=== PATIENT | female | born 1955 | race Caucasian/White ===

== ENCOUNTER 2018-05-14 09:00 | Outpatient (CLI) | payer BC ==
[~2018-05-14] VITALS: Ht 175.3 cm; Wt 123.4 kg
[2018-05-14] MEDS ORDERED: CATHETER FLUSH 10 ML SYR IV PRN (09:30)
[2018-05-14] MEDS ORDERED: NS IV 500 ML 500 ML ONE (10:32)
[2018-05-14 10:50] VITALS: BP 129/67
[2018-05-14 11:05] VITALS: BP 109/56
[2018-05-14 12:35] VITALS: BP 105/58
[2018-05-14 13:00] VITALS: BP 129/67
[2018-05-14 13:05] VITALS: BP 129/67
== END 2018-05-14 13:05 | disposition home or self-care (01) ==
LOC: SDC 09:00
PROVIDERS: ATTEND Internal Medicine Hematology & Oncology
DX: D69.59 Other secondary thrombocytopenia (principal)
CPT/HCPCS: 36430; 86850; 86900; 86901

== ENCOUNTER → 2018-05-21 | Outpatient (CLI) | payer BC ==
[2018-05-21] VITALS (8 sets, daily range): BP systolic 105–144; BP diastolic 62–89
[~2018-05-21] VITALS: Ht 175.3 cm; Wt 12.2 kg
[~2018-05-21] MED LIST: ACETAMINOPHEN 325 MG TABLET PO ONE; HEParin (CENTRAL IV FLUSH) 500 UNIT/5 ML SYR ONE; HYDROCORTISONE 100 MG/2 ML (Solu-CORTEF) VIAL IV ONE; NS IV 500 ML 500 ML IV SCH; TBO-FILGRASTIM 480 MCG/0.8 ML (GRANIX) SQ SCH; diphenhydrAMINE 25 MG TAB (BENADRYL) PO ONE
== END ==
LOC: SDC 14:08
PROVIDERS: ATTEND Internal Medicine Hematology & Oncology
DX: C48.8 Malignant neoplasm of overlapping sites of retroperitoneum and peritoneum (principal)
CPT/HCPCS: 36430; 86850; 86900; 86901; 86920

== ENCOUNTER 2018-05-23 14:14 | Outpatient (RCR) | payer BC ==
[~2018-05-23] VITALS: Ht 175.3 cm; Wt 12.2 kg
[2018-05-23] MEDS: TBO-FILGRASTIM 480 MCG/0.8 ML (GRANIX) SQ SCH (14:59)
[2018-05-23 15:07] VITALS: BP 130/75
[2018-05-24] MEDS: TBO-FILGRASTIM 480 MCG/0.8 ML (GRANIX) SQ SCH (13:51)
[2018-05-24 13:52] VITALS: BP 128/82
== END 2018-08-21 | disposition home or self-care (01) ==
LOC: 4TH 14:14 → SDC 14:14 → 4TH 14:18 → SDC 14:18 → 4TH 05-24 04:58
PROVIDERS: ATTEND Internal Medicine Hematology & Oncology
DX: C48.8 Malignant neoplasm of overlapping sites of retroperitoneum and peritoneum (principal)

== ENCOUNTER → 2018-06-17 | Outpatient (CLI) | payer BC ==
[~2018-06-17] MED LIST changes: -ACETAMINOPHEN 325 MG TABLET PO ONE; +BARIUM SUSPENSION 2.1% (VANILLA SILQ) 450 ML PO ONE; +CATHETER FLUSH 10 ML SYR IV PRN; -HEParin (CENTRAL IV FLUSH) 500 UNIT/5 ML SYR ONE; +HOLD METFORMIN - RECEIVED CONTRAST 20 ML VIAL IV SCH; -HYDROCORTISONE 100 MG/2 ML (Solu-CORTEF) VIAL IV ONE; +IOHEXOL 350 MG/ML 100 ML (OMNIPAQUE 350) VIAL IV ONE; +NS 50 ML (IVPB) BAG IV ONE; -NS IV 500 ML 500 ML IV SCH; -TBO-FILGRASTIM 480 MCG/0.8 ML (GRANIX) SQ SCH; -diphenhydrAMINE 25 MG TAB (BENADRYL) PO ONE
--- NOTE | 2018-06-17 10:32 | Diagnostic Imaging Report ---
PROCEDURE: CT abdomen and pelvis with contrast. TECHNIQUE: Multiple contiguous axial images were obtained through the abdomen and pelvis after administration of intravenous contrast. Auto Exposure Controls were utilized during the CT exam to meet ALARA standards for radiation dose reduction. INDICATION: Malignant neoplasm. Study is performed for followup. COMPARISON: Correlation is made with prior CT from [facility] on 04/06/2018. FINDINGS: The lung bases are clear. No discrete liver mass is identified. The gallbladder is surgically absent. No biliary duct dilatation is seen. The pancreas and spleen are unremarkable. Right adrenal mass seen on prior exam has significantly decreased in size and is now barely visible. No left adrenal mass is identified. The kidneys are unremarkable. Aorta is nonaneurysmal. Previous study did show prominent lymph node in the central retroperitoneum anterior to the IVC just proximal to the aortic bifurcation. This lymph node and is now barely visible and only a few millimeters in size. No enlarged central retroperitoneal lymph nodes or enlarged mesenteric nodes are identified on today's study. In addition, prior study did show multiple enlarged lymph nodes along the iliac chains bilaterally. These too have nearly completely resolved. There are small obturator nodes present, on the right measuring 20 mm x 13 mm and on the left measuring 23 mm x 11 mm. This compares with 37 mm x 27 mm and 39 mm x 26 mm respectively on prior exam. Bulky inguinal lymphadenopathy was also present on prior exam. This has also completely resolved. Small and large bowel loops are normal in caliber. There is no ascites. Bladder is decompressed. IMPRESSION: Significant improved appearance to the abdomen and pelvis since prior CT from 04/06/2018. Central retroperitoneal as well as bilateral iliac and inguinal lymphadenopathy has markedly improved. No new abnormality is seen. Right adrenal mass has also significantly decreased in size. Dictated by: Dictated on workstation # [id number]
== END ==
LOC: RAD FS 08:19
PROVIDERS: ATTEND Internal Medicine Hematology & Oncology
DX: C48.8 Malignant neoplasm of overlapping sites of retroperitoneum and peritoneum (principal); R59.0 Localized enlarged lymph nodes; E27.8 Other specified disorders of adrenal gland; Z90.49 Acquired absence of other specified parts of digestive tract
CPT/HCPCS: 74177

== ENCOUNTER → 2018-06-17 | Outpatient (CLI) | payer BC ==
[2018-06-17 09:19] LABS: HEMOGLOBIN 7.6 G/DL (11.5-16.0); MEAN CORPUSCULAR HEMOGLOBIN 31 PG (25-34); WHITE BLOOD COUNT 4.5 10^3/uL (4.3-11.0)
[2018-06-17 09:20] LABS: BASOPHILS % (AUTO) 0 % (0-10); EOSINOPHILS % (AUTO) 1 % (0-10); HEMATOCRIT 26 % (35-52); LYMPHOCYTES % (AUTO) 32 % (12-44); MEAN CORPUSCULAR HGB CONC 29 G/DL (32-36); MEAN CORPUSCULAR VOLUME 105 FL (80-99); MEAN PLATELET VOLUME 10.3 FL (7.4-10.4); MONOCYTES % (AUTO) 29 % (0-12); NEUTROPHILS % (AUTO) 24 % (42-75); PLATELET COUNT 208 10^3/uL (130-400); RED CELL DISTRIBUTION WIDTH 22.5 % (10.0-14.5)
[2018-06-17 09:21] LABS: EOSINOPHILS # (AUTO) 0.1 10^3/uL (0.0-0.3); LYMPHOCYTES # (AUTO) 1.4 X 10^3 (1.0-4.0); MONOCYTES # (AUTO) 1.3 X 10^3 (0.0-1.0); NEUTROPHILS # (AUTO) 1.1 X 10^3 (1.8-7.8)
[2018-06-17 09:35] LABS: POTASSIUM 3.6 MMOL/L (3.6-5.0)
[2018-06-17 09:36] LABS: BILIRUBIN,TOTAL 0.4 MG/DL (0.1-1.0); CALCIUM 8.9 MG/DL (8.5-10.1); CREATININE SERUM 1.2 MG/DL (0.60-1.30); TOTAL PROTEIN 7.3 GM/DL (6.4-8.2)
[2018-06-17 09:37] LABS: ALBUMIN 3.8 GM/DL (3.2-4.5)
[2018-06-17 09:56] LABS: BAND NEUTROPHILS 8 %; BASOPHILS % (MANUAL) 0 %; EOSINOPHILS % (MANUAL) 0 %; LYMPHOCYTES % (MANUAL) 36 %; METAMYELOCYTES % 10 %; MONOCYTES % (MANUAL) 19 %; MYELOCYTES % 5 %; NEUTROPHILS % (MANUAL) 20 %
[2018-06-17 09:57] LABS: ANISOCYTOSIS MODERATE; ATYPICAL LYMPHOCYTES 2 %; NUCLEATED RED BLOOD CELLS 4; POLYCHROMASIA SLIGHT
== END ==
LOC: LAB FS 08:25
PROVIDERS: ATTEND Internal Medicine Hematology & Oncology
DX: C48.8 Malignant neoplasm of overlapping sites of retroperitoneum and peritoneum (principal)
CPT/HCPCS: 36415; 80053; 85007; 85027; 86304

== ENCOUNTER → 2018-06-24 | Outpatient (CLI) | payer BC ==
[2018-06-24 08:09] LABS: HEMATOCRIT 31 % (35-52); HEMOGLOBIN 9.1 G/DL (11.5-16.0); MEAN CORPUSCULAR HEMOGLOBIN 31 PG (25-34); MEAN CORPUSCULAR HGB CONC 30 G/DL (32-36); MEAN CORPUSCULAR VOLUME 104 FL (80-99); RED CELL DISTRIBUTION WIDTH 21.1 % (10.0-14.5)
[2018-06-24 08:10] LABS: BASOPHILS % (AUTO) 1 % (0-10); EOSINOPHILS % (AUTO) 1 % (0-10); LYMPHOCYTES # (AUTO) 1.3 X 10^3 (1.0-4.0); LYMPHOCYTES % (AUTO) 31 % (12-44); MEAN PLATELET VOLUME 10.1 FL (7.4-10.4); MONOCYTES # (AUTO) 0.7 X 10^3 (0.0-1.0); MONOCYTES % (AUTO) 16 % (0-12); NEUTROPHILS % (AUTO) 50 % (42-75); PLATELET COUNT 258 10^3/uL (130-400)
[2018-06-24 08:11] LABS: SMEAR SCAN COMMENT OK
== END ==
LOC: LAB FS 07:04
PROVIDERS: ATTEND Internal Medicine Hematology & Oncology
DX: C48.8 Malignant neoplasm of overlapping sites of retroperitoneum and peritoneum (principal)
CPT/HCPCS: 36415; 85025

== ENCOUNTER → 2018-07-01 | Outpatient (CLI) | payer BC ==
[2018-07-01 07:37] LABS: HEMATOCRIT 27 % (35-52); MEAN CORPUSCULAR HEMOGLOBIN 31 PG (25-34); MEAN CORPUSCULAR HGB CONC 30 G/DL (32-36); MEAN CORPUSCULAR VOLUME 104 FL (80-99); WHITE BLOOD COUNT 7.2 10^3/uL (4.3-11.0)
[2018-07-01 07:38] LABS: BASOPHILS % (AUTO) 1 % (0-10); EOSINOPHILS % (AUTO) 0 % (0-10); LYMPHOCYTES % (AUTO) 17 % (12-44); MEAN PLATELET VOLUME 9.7 FL (7.4-10.4); MONOCYTES % (AUTO) 20 % (0-12); PLATELET COUNT 160 10^3/uL (130-400); RED CELL DISTRIBUTION WIDTH 18.8 % (10.0-14.5)
[2018-07-01 07:39] LABS: LYMPHOCYTES # (AUTO) 1.3 X 10^3 (1.0-4.0); NEUTROPHILS # (AUTO) 4.5 X 10^3 (1.8-7.8); NEUTROPHILS % (AUTO) 62 % (42-75)
[2018-07-01 07:40] LABS: BASOPHILS # (AUTO) 0.1 10^3/uL (0.0-0.1); MONOCYTES # (AUTO) 1.4 X 10^3 (0.0-1.0)
== END ==
LOC: LAB FS 07:08
PROVIDERS: ATTEND Internal Medicine Hematology & Oncology
DX: C48.8 Malignant neoplasm of overlapping sites of retroperitoneum and peritoneum (principal)
CPT/HCPCS: 36415; 85025

== ENCOUNTER 2018-07-08 07:18 | Outpatient (RCR) | payer BC ==
[2018-07-08 07:49] LABS: HEMATOCRIT 29 % (35-52); HEMOGLOBIN 8.7 G/DL (11.5-16.0); MEAN CORPUSCULAR HEMOGLOBIN 32 PG (25-34); MEAN CORPUSCULAR HGB CONC 30 G/DL (32-36); MEAN CORPUSCULAR VOLUME 106 FL (80-99); MEAN PLATELET VOLUME 10.8 FL (7.4-10.4); PLATELET COUNT 105 10^3/uL (130-400); RED CELL DISTRIBUTION WIDTH 18.6 % (10.0-14.5); WHITE BLOOD COUNT 26.1 10^3/uL (4.3-11.0)
[2018-07-08 07:50] LABS: BASOPHILS # (AUTO) 0.1 10^3/uL (0.0-0.1); BASOPHILS % (AUTO) 1 % (0-10); EOSINOPHILS % (AUTO) 0 % (0-10); LYMPHOCYTES # (AUTO) 1.9 X 10^3 (1.0-4.0); LYMPHOCYTES % (AUTO) 7 % (12-44); MONOCYTES # (AUTO) 1.3 X 10^3 (0.0-1.0); MONOCYTES % (AUTO) 5 % (0-12); NEUTROPHILS % (AUTO) 81 % (42-75)
[2018-07-08 08:12] LABS: ATYPICAL LYMPHOCYTES 1 %; BAND NEUTROPHILS 7 %; BASOPHILS % (MANUAL) 0 %; EOSINOPHILS % (MANUAL) 0 %; LYMPHOCYTES % (MANUAL) 6 %; METAMYELOCYTES % 1 %; MONOCYTES % (MANUAL) 4 %; MYELOCYTES % 3 %; NEUTROPHILS % (MANUAL) 78 %
[2018-07-08 08:13] LABS: POLYCHROMASIA SLIGHT
[2018-07-15 07:50] LABS: HEMOGLOBIN 9.8 G/DL (11.5-16.0); MEAN CORPUSCULAR HEMOGLOBIN 33 PG (25-34); WHITE BLOOD COUNT 11.1 10^3/uL (4.3-11.0)
[2018-07-15 07:51] LABS: BASOPHILS % (AUTO) 1 % (0-10); EOSINOPHILS % (AUTO) 1 % (0-10); HEMATOCRIT 33 % (35-52); LYMPHOCYTES % (AUTO) 13 % (12-44); MEAN CORPUSCULAR HGB CONC 30 G/DL (32-36); MEAN CORPUSCULAR VOLUME 112 FL (80-99); MEAN PLATELET VOLUME 11.1 FL (7.4-10.4); MONOCYTES % (AUTO) 8 % (0-12); NEUTROPHILS % (AUTO) 77 % (42-75); PLATELET COUNT 150 10^3/uL (130-400); RED CELL DISTRIBUTION WIDTH 22.4 % (10.0-14.5)
[2018-07-15 07:52] LABS: BASOPHILS # (AUTO) 0.1 10^3/uL (0.0-0.1); EOSINOPHILS # (AUTO) 0.1 10^3/uL (0.0-0.3); LYMPHOCYTES # (AUTO) 1.5 X 10^3 (1.0-4.0); MONOCYTES # (AUTO) 0.9 X 10^3 (0.0-1.0); NEUTROPHILS # (AUTO) 8.6 X 10^3 (1.8-7.8)
[2018-07-22 08:07] LABS: BASOPHILS % (AUTO) 1 % (0-10); EOSINOPHILS % (AUTO) 2 % (0-10); HEMATOCRIT 35 % (35-52); HEMOGLOBIN 10.6 G/DL (11.5-16.0); LYMPHOCYTES % (AUTO) 20 % (12-44); MEAN CORPUSCULAR HEMOGLOBIN 32 PG (25-34); MEAN CORPUSCULAR HGB CONC 30 G/DL (32-36); MEAN CORPUSCULAR VOLUME 107 FL (80-99); MEAN PLATELET VOLUME 10.9 FL (7.4-10.4); MONOCYTES % (AUTO) 10 % (0-12); NEUTROPHILS % (AUTO) 67 % (42-75); PLATELET COUNT 203 10^3/uL (130-400); RED CELL DISTRIBUTION WIDTH 19.7 % (10.0-14.5); WHITE BLOOD COUNT 8.1 10^3/uL (4.3-11.0)
[2018-07-22 08:08] LABS: BASOPHILS # (AUTO) 0.1 10^3/uL (0.0-0.1); EOSINOPHILS # (AUTO) 0.2 10^3/uL (0.0-0.3); LYMPHOCYTES # (AUTO) 1.6 X 10^3 (1.0-4.0); MONOCYTES # (AUTO) 0.8 X 10^3 (0.0-1.0); NEUTROPHILS # (AUTO) 5.5 X 10^3 (1.8-7.8)
[2018-07-22 09:29] LABS: ALBUMIN 3.6 GM/DL (3.2-4.5); BILIRUBIN,TOTAL 0.5 MG/DL (0.1-1.0); CALCIUM 9.4 MG/DL (8.5-10.1); CREATININE SERUM 1.01 MG/DL (0.60-1.30); POTASSIUM 3.9 MMOL/L (3.6-5.0); TOTAL PROTEIN 7.2 GM/DL (6.4-8.2)
[2018-07-29 07:42] LABS: MEAN CORPUSCULAR HEMOGLOBIN 32 PG (25-34); WHITE BLOOD COUNT 5.4 10^3/uL (4.3-11.0)
[2018-07-29 07:43] LABS: BASOPHILS % (AUTO) 1 % (0-10); EOSINOPHILS % (AUTO) 1 % (0-10); HEMATOCRIT 33 % (35-52); LYMPHOCYTES % (AUTO) 20 % (12-44); MEAN CORPUSCULAR HGB CONC 30 G/DL (32-36); MEAN CORPUSCULAR VOLUME 106 FL (80-99); MEAN PLATELET VOLUME 10.7 FL (7.4-10.4); MONOCYTES % (AUTO) 9 % (0-12); NEUTROPHILS % (AUTO) 69 % (42-75); PLATELET COUNT 104 10^3/uL (130-400); RED CELL DISTRIBUTION WIDTH 17.1 % (10.0-14.5)
[2018-07-29 07:44] LABS: LYMPHOCYTES # (AUTO) 1.1 X 10^3 (1.0-4.0); MONOCYTES # (AUTO) 0.5 X 10^3 (0.0-1.0); NEUTROPHILS # (AUTO) 3.7 X 10^3 (1.8-7.8)
[2018-08-05 08:21] LABS: HEMATOCRIT 30 % (35-52); HEMOGLOBIN 9.3 G/DL (11.5-16.0); MEAN CORPUSCULAR HEMOGLOBIN 32 PG (25-34); MEAN CORPUSCULAR VOLUME 106 FL (80-99); WHITE BLOOD COUNT 11.6 10^3/uL (4.3-11.0)
[2018-08-05 08:22] LABS: BASOPHILS % (AUTO) 0 % (0-10); EOSINOPHILS % (AUTO) 0 % (0-10); LYMPHOCYTES # (AUTO) 1.5 X 10^3 (1.0-4.0); LYMPHOCYTES % (AUTO) 13 % (12-44); MEAN CORPUSCULAR HGB CONC 31 G/DL (32-36); MEAN PLATELET VOLUME 11.4 FL (7.4-10.4); MONOCYTES # (AUTO) 0.6 X 10^3 (0.0-1.0); MONOCYTES % (AUTO) 5 % (0-12); NEUTROPHILS # (AUTO) 9.5 X 10^3 (1.8-7.8); NEUTROPHILS % (AUTO) 82 % (42-75); PLATELET COUNT 53 10^3/uL (130-400); RED CELL DISTRIBUTION WIDTH 16.7 % (10.0-14.5)
[2018-08-19 07:41] LABS: HEMATOCRIT 38 % (35-52); HEMOGLOBIN 11.6 G/DL (11.5-16.0); MEAN CORPUSCULAR HEMOGLOBIN 32 PG (25-34); MEAN CORPUSCULAR HGB CONC 30 G/DL (32-36); MEAN CORPUSCULAR VOLUME 106 FL (80-99); PLATELET COUNT 193 10^3/uL (130-400); RED CELL DISTRIBUTION WIDTH 16.8 % (10.0-14.5); WHITE BLOOD COUNT 6.9 10^3/uL (4.3-11.0)
[2018-08-19 07:42] LABS: BASOPHILS # (AUTO) 0.1 10^3/uL (0.0-0.1); BASOPHILS % (AUTO) 1 % (0-10); EOSINOPHILS # (AUTO) 0.1 10^3/uL (0.0-0.3); EOSINOPHILS % (AUTO) 2 % (0-10); LYMPHOCYTES # (AUTO) 1.4 X 10^3 (1.0-4.0); LYMPHOCYTES % (AUTO) 21 % (12-44); MEAN PLATELET VOLUME 9.9 FL (7.4-10.4); MONOCYTES # (AUTO) 0.7 X 10^3 (0.0-1.0); MONOCYTES % (AUTO) 10 % (0-12); NEUTROPHILS # (AUTO) 4.6 X 10^3 (1.8-7.8); NEUTROPHILS % (AUTO) 67 % (42-75)
== END 2018-10-06 | disposition home or self-care (01) ==
LOC: LAB FS 07:18
PROVIDERS: ATTEND Internal Medicine Hematology & Oncology
DX: C48.8 Malignant neoplasm of overlapping sites of retroperitoneum and peritoneum (principal)
CPT/HCPCS: 36415; 80053; 82728; 83540; 85007; 85025; 85027; 86304

== ENCOUNTER → 2018-08-12 | Outpatient (CLI) | payer BC ==
[2018-08-12 08:59] LABS: HEMATOCRIT 33 % (35-52); HEMOGLOBIN 10.2 G/DL (11.5-16.0); MEAN CORPUSCULAR HEMOGLOBIN 32 PG (25-34); MEAN CORPUSCULAR HGB CONC 31 G/DL (32-36); MEAN CORPUSCULAR VOLUME 106 FL (80-99); PLATELET COUNT 196 10^3/uL (130-400); RED CELL DISTRIBUTION WIDTH 17.6 % (10.0-14.5); WHITE BLOOD COUNT 6.2 10^3/uL (4.3-11.0)
[2018-08-12 09:00] LABS: BASOPHILS % (AUTO) 1 % (0-10); EOSINOPHILS # (AUTO) 0.1 10^3/uL (0.0-0.3); EOSINOPHILS % (AUTO) 2 % (0-10); LYMPHOCYTES # (AUTO) 1.4 X 10^3 (1.0-4.0); LYMPHOCYTES % (AUTO) 22 % (12-44); MEAN PLATELET VOLUME 11.1 FL (7.4-10.4); MONOCYTES # (AUTO) 0.9 X 10^3 (0.0-1.0); MONOCYTES % (AUTO) 14 % (0-12); NEUTROPHILS # (AUTO) 3.8 X 10^3 (1.8-7.8); NEUTROPHILS % (AUTO) 61 % (42-75)
[2018-08-12 10:20] LABS: CREATININE SERUM 1.04 MG/DL (0.60-1.30); POTASSIUM 3.7 MMOL/L (3.6-5.0)
[2018-08-12 10:21] LABS: ALBUMIN 3.6 GM/DL (3.2-4.5); BILIRUBIN,TOTAL 0.4 MG/DL (0.1-1.0); TOTAL PROTEIN 7.2 GM/DL (6.4-8.2)
== END ==
LOC: LAB FS 07:11
PROVIDERS: ATTEND Internal Medicine Hematology & Oncology
DX: C48.8 Malignant neoplasm of overlapping sites of retroperitoneum and peritoneum (principal); D63.1 Anemia in chronic kidney disease; N18.9 Chronic kidney disease, unspecified; D64.81 Anemia due to antineoplastic chemotherapy; T45.1X5A Adverse effect of antineoplastic and immunosuppressive drugs, initial encounter; D69.59 Other secondary thrombocytopenia
CPT/HCPCS: 36415; 80053; 85025; 86304

== ENCOUNTER 2018-08-26 07:57 | Outpatient (RCR) | payer BC ==
[2018-08-26 08:40] LABS: HEMATOCRIT 34 % (35-52); HEMOGLOBIN 10.6 G/DL (11.5-16.0); MEAN CORPUSCULAR HEMOGLOBIN 33 PG (25-34); MEAN CORPUSCULAR HGB CONC 32 G/DL (32-36); MEAN CORPUSCULAR VOLUME 104 FL (80-99); PLATELET COUNT 108 10^3/uL (130-400); WHITE BLOOD COUNT 6.8 10^3/uL (4.3-11.0)
[2018-08-26 08:41] LABS: BASOPHILS % (AUTO) 0 % (0-10); EOSINOPHILS % (AUTO) 0 % (0-10); LYMPHOCYTES # (AUTO) 1.4 X 10^3 (1.0-4.0); LYMPHOCYTES % (AUTO) 21 % (12-44); MONOCYTES # (AUTO) 0.8 X 10^3 (0.0-1.0); MONOCYTES % (AUTO) 12 % (0-12); NEUTROPHILS # (AUTO) 4.5 X 10^3 (1.8-7.8); NEUTROPHILS % (AUTO) 66 % (42-75)
[2018-09-02 12:10] LABS: HEMATOCRIT 34 % (35-52); HEMOGLOBIN 10.5 G/DL (11.5-16.0); MEAN CORPUSCULAR HEMOGLOBIN 32 PG (25-34); MEAN CORPUSCULAR HGB CONC 31 G/DL (32-36); MEAN CORPUSCULAR VOLUME 103 FL (80-99); MEAN PLATELET VOLUME 10.8 FL (7.4-10.4); PLATELET COUNT 72 10^3/uL (130-400); RED CELL DISTRIBUTION WIDTH 15.4 % (10.0-14.5); WHITE BLOOD COUNT 18.4 10^3/uL (4.3-11.0)
[2018-09-02 12:11] LABS: BASOPHILS # (AUTO) 0.1 10^3/uL (0.0-0.1); BASOPHILS % (AUTO) 0 % (0-10); EOSINOPHILS % (AUTO) 0 % (0-10); LYMPHOCYTES % (AUTO) 11 % (12-44); MONOCYTES % (AUTO) 5 % (0-12); NEUTROPHILS # (AUTO) 14.9 X 10^3 (1.8-7.8); NEUTROPHILS % (AUTO) 81 % (42-75)
[2018-09-02 12:12] LABS: ANISOCYTOSIS SLIGHT; BAND NEUTROPHILS 5 %; BASOPHILS % (MANUAL) 0 %; EOSINOPHILS % (MANUAL) 0 %; LYMPHOCYTES % (MANUAL) 15 %; METAMYELOCYTES % 0 %; MONOCYTES % (MANUAL) 6 %; MYELOCYTES % 1 %; NEUTROPHILS % (MANUAL) 73 %
[2018-09-09 08:01] LABS: HEMATOCRIT 37 % (35-52); LYMPHOCYTES % (AUTO) 7 % (12-44); MEAN CORPUSCULAR HEMOGLOBIN 33 PG (25-34); MEAN CORPUSCULAR HGB CONC 30 G/DL (32-36); MEAN CORPUSCULAR VOLUME 108 FL (80-99); MEAN PLATELET VOLUME 10.6 FL (7.4-10.4); MONOCYTES % (AUTO) 10 % (0-12); PLATELET COUNT 191 10^3/uL (130-400); RED CELL DISTRIBUTION WIDTH 18.3 % (10.0-14.5); WHITE BLOOD COUNT 9.1 10^3/uL (4.3-11.0)
[2018-09-09 08:02] LABS: BASOPHILS % (AUTO) 0 % (0-10); EOSINOPHILS # (AUTO) 0.3 10^3/uL (0.0-0.3); EOSINOPHILS % (AUTO) 3 % (0-10); LYMPHOCYTES # (AUTO) 0.6 X 10^3 (1.0-4.0); NEUTROPHILS # (AUTO) 7.3 X 10^3 (1.8-7.8); NEUTROPHILS % (AUTO) 80 % (42-75)
[2018-09-09 08:23] LABS: BILIRUBIN,TOTAL 0.6 MG/DL (0.1-1.0); CALCIUM 8.6 MG/DL (8.5-10.1); CREATININE SERUM 1.03 MG/DL (0.60-1.30); POTASSIUM 3.6 MMOL/L (3.6-5.0)
[2018-09-09 08:24] LABS: ALBUMIN 3.3 GM/DL (3.2-4.5)
[2018-09-16 07:32] LABS: BASOPHILS % (AUTO) 1 % (0-10); EOSINOPHILS % (AUTO) 2 % (0-10); HEMATOCRIT 39 % (35-52); HEMOGLOBIN 11.7 G/DL (11.5-16.0); LYMPHOCYTES # (AUTO) 1.8 X 10^3 (1.0-4.0); LYMPHOCYTES % (AUTO) 22 % (12-44); MEAN CORPUSCULAR HEMOGLOBIN 32 PG (25-34); MEAN CORPUSCULAR HGB CONC 30 G/DL (32-36); MEAN CORPUSCULAR VOLUME 107 FL (80-99); MEAN PLATELET VOLUME 10.4 FL (7.4-10.4); MONOCYTES % (AUTO) 12 % (0-12); NEUTROPHILS # (AUTO) 5.2 X 10^3 (1.8-7.8); NEUTROPHILS % (AUTO) 63 % (42-75); PLATELET COUNT 225 10^3/uL (130-400); RED CELL DISTRIBUTION WIDTH 16.7 % (10.0-14.5); WHITE BLOOD COUNT 8.3 10^3/uL (4.3-11.0)
[2018-09-16 07:33] LABS: BASOPHILS # (AUTO) 0.1 10^3/uL (0.0-0.1); EOSINOPHILS # (AUTO) 0.2 10^3/uL (0.0-0.3)
[2018-09-23 07:33] LABS: HEMATOCRIT 34 % (35-52); HEMOGLOBIN 10.9 G/DL (11.5-16.0); MEAN CORPUSCULAR HEMOGLOBIN 32 PG (25-34); MEAN CORPUSCULAR VOLUME 102 FL (80-99); WHITE BLOOD COUNT 5.1 10^3/uL (4.3-11.0)
[2018-09-23 07:34] LABS: BASOPHILS % (AUTO) 1 % (0-10); EOSINOPHILS # (AUTO) 0.1 10^3/uL (0.0-0.3); EOSINOPHILS % (AUTO) 1 % (0-10); LYMPHOCYTES # (AUTO) 1.5 X 10^3 (1.0-4.0); LYMPHOCYTES % (AUTO) 30 % (12-44); MEAN CORPUSCULAR HGB CONC 32 G/DL (32-36); MEAN PLATELET VOLUME 10.3 FL (7.4-10.4); MONOCYTES # (AUTO) 0.7 X 10^3 (0.0-1.0); MONOCYTES % (AUTO) 13 % (0-12); NEUTROPHILS # (AUTO) 2.8 X 10^3 (1.8-7.8); NEUTROPHILS % (AUTO) 55 % (42-75); PLATELET COUNT 105 10^3/uL (130-400); RED CELL DISTRIBUTION WIDTH 15.2 % (10.0-14.5)
== END 2018-11-24 | disposition home or self-care (01) ==
LOC: LAB FS 07:57
PROVIDERS: ATTEND Internal Medicine Hematology & Oncology
DX: C48.8 Malignant neoplasm of overlapping sites of retroperitoneum and peritoneum (principal); D63.1 Anemia in chronic kidney disease; N18.9 Chronic kidney disease, unspecified; D64.81 Anemia due to antineoplastic chemotherapy; D69.59 Other secondary thrombocytopenia
CPT/HCPCS: 36415; 80053; 85007; 85025; 85027; 86304

== ENCOUNTER 2018-09-30 07:09 | Outpatient (RCR) | payer BC ==
[2018-09-30 07:39] LABS: BASOPHILS # (AUTO) 0.1 10^3/uL (0.0-0.1); BASOPHILS % (AUTO) 0 % (0-10); EOSINOPHILS # (AUTO) 0.1 10^3/uL (0.0-0.3); EOSINOPHILS % (AUTO) 0 % (0-10); HEMATOCRIT 33 % (35-52); HEMOGLOBIN 10.3 G/DL (11.5-16.0); LYMPHOCYTES # (AUTO) 1.9 X 10^3 (1.0-4.0); LYMPHOCYTES % (AUTO) 12 % (12-44); MEAN CORPUSCULAR HEMOGLOBIN 32 PG (25-34); MEAN CORPUSCULAR HGB CONC 31 G/DL (32-36); MEAN CORPUSCULAR VOLUME 103 FL (80-99); MEAN PLATELET VOLUME 10.6 FL (7.4-10.4); MONOCYTES # (AUTO) 0.7 X 10^3 (0.0-1.0); MONOCYTES % (AUTO) 4 % (0-12); NEUTROPHILS # (AUTO) 13.4 X 10^3 (1.8-7.8); NEUTROPHILS % (AUTO) 82 % (42-75); PLATELET COUNT 67 10^3/uL (130-400); RED CELL DISTRIBUTION WIDTH 15.9 % (10.0-14.5); WHITE BLOOD COUNT 16.4 10^3/uL (4.3-11.0)
[2018-09-30 07:58] LABS: CREATININE SERUM 0.99 MG/DL (0.60-1.30); POTASSIUM 3.6 MMOL/L (3.6-5.0)
[2018-09-30 07:59] LABS: ALBUMIN 3.2 GM/DL (3.2-4.5); BILIRUBIN,TOTAL 0.3 MG/DL (0.1-1.0); CALCIUM 8.9 MG/DL (8.5-10.1); TOTAL PROTEIN 6.9 GM/DL (6.4-8.2)
== END 2018-12-29 | disposition home or self-care (01) ==
LOC: LAB FS 07:09
PROVIDERS: ATTEND Internal Medicine Hematology & Oncology
DX: C48.8 Malignant neoplasm of overlapping sites of retroperitoneum and peritoneum (principal); D63.1 Anemia in chronic kidney disease; N18.9 Chronic kidney disease, unspecified; D64.81 Anemia due to antineoplastic chemotherapy; D69.59 Other secondary thrombocytopenia
CPT/HCPCS: 36415; 80053; 85025

== ENCOUNTER → 2018-10-07 | Outpatient (CLI) | payer BC ==
[2018-10-07 07:51] LABS: BASOPHILS % (AUTO) 1 % (0-10); EOSINOPHILS # (AUTO) 0.2 10^3/uL (0.0-0.3); EOSINOPHILS % (AUTO) 2 % (0-10); HEMATOCRIT 37 % (35-52); HEMOGLOBIN 11.1 G/DL (11.5-16.0); LYMPHOCYTES # (AUTO) 1.6 X 10^3 (1.0-4.0); LYMPHOCYTES % (AUTO) 20 % (12-44); MEAN CORPUSCULAR HEMOGLOBIN 32 PG (25-34); MEAN CORPUSCULAR HGB CONC 30 G/DL (32-36); MEAN CORPUSCULAR VOLUME 107 FL (80-99); MEAN PLATELET VOLUME 11.4 FL (7.4-10.4); MONOCYTES # (AUTO) 0.9 X 10^3 (0.0-1.0); MONOCYTES % (AUTO) 11 % (0-12); NEUTROPHILS # (AUTO) 5.4 X 10^3 (1.8-7.8); NEUTROPHILS % (AUTO) 66 % (42-75); PLATELET COUNT 174 10^3/uL (130-400); RED CELL DISTRIBUTION WIDTH 18.6 % (10.0-14.5); WHITE BLOOD COUNT 8.2 10^3/uL (4.3-11.0)
[2018-10-07 08:20] LABS: ALANINE AMINOTRANSFERASE 25 U/L (0-55); ALBUMIN 3.5 GM/DL (3.2-4.5); ALKALINE PHOSPHATASE 110 U/L (40-136); BILIRUBIN,TOTAL 0.5 MG/DL (0.1-1.0); BUN/CREATININE RATIO 10; CARBON DIOXIDE 24 MMOL/L (21-32); CHLORIDE 105 MMOL/L (98-107); CREATININE SERUM 0.94 MG/DL (0.60-1.30); GFR ESTIMATED > 60; GLUCOSE 95 MG/DL (70-105); POTASSIUM 3.7 MMOL/L (3.6-5.0); SODIUM 142 MMOL/L (135-145)
== END ==
LOC: LAB FS 07:04
PROVIDERS: ATTEND Internal Medicine Hematology & Oncology
DX: Z01.89 Encounter for other specified special examinations (principal)
CPT/HCPCS: 36415; 80053; 85025; 86304

== ENCOUNTER 2018-10-14 06:56 | Outpatient (RCR) | payer BC ==
[2018-10-14 07:34] LABS: HEMATOCRIT 39 % (35-52); MEAN CORPUSCULAR HEMOGLOBIN 32 PG (25-34); MEAN CORPUSCULAR VOLUME 105 FL (80-99); WHITE BLOOD COUNT 8.3 10^3/uL (4.3-11.0)
[2018-10-14 07:35] LABS: MEAN CORPUSCULAR HGB CONC 31 G/DL (32-36)
[2018-10-14 07:36] LABS: BASOPHILS % (AUTO) 1 % (0-10); EOSINOPHILS % (AUTO) 2 % (0-10); LYMPHOCYTES % (AUTO) 21 % (12-44); MEAN PLATELET VOLUME 10.6 FL (7.4-10.4); MONOCYTES % (AUTO) 12 % (0-12); NEUTROPHILS % (AUTO) 63 % (42-75); PLATELET COUNT 202 10^3/uL (130-400); RED CELL DISTRIBUTION WIDTH 16.6 % (10.0-14.5)
[2018-10-14 07:37] LABS: BASOPHILS # (AUTO) 0.1 10^3/uL (0.0-0.1); EOSINOPHILS # (AUTO) 0.2 10^3/uL (0.0-0.3); LYMPHOCYTES # (AUTO) 1.8 X 10^3 (1.0-4.0); NEUTROPHILS # (AUTO) 5.2 X 10^3 (1.8-7.8)
[2018-10-14 08:26] LABS: POTASSIUM 3.8 MMOL/L (3.6-5.0)
[2018-10-14 08:27] LABS: CREATININE SERUM 1.03 MG/DL (0.60-1.30)
[2018-10-14 08:28] LABS: ALBUMIN 3.6 GM/DL (3.2-4.5); BILIRUBIN,TOTAL 0.5 MG/DL (0.1-1.0); TOTAL PROTEIN 7.3 GM/DL (6.4-8.2)
[2018-10-21 07:28] LABS: HEMATOCRIT 35 % (35-52); HEMOGLOBIN 10.9 G/DL (11.5-16.0); MEAN CORPUSCULAR HEMOGLOBIN 32 PG (25-34); MEAN CORPUSCULAR VOLUME 103 FL (80-99); WHITE BLOOD COUNT 5.2 10^3/uL (4.3-11.0)
[2018-10-21 07:29] LABS: BASOPHILS % (AUTO) 1 % (0-10); EOSINOPHILS # (AUTO) 0.1 10^3/uL (0.0-0.3); EOSINOPHILS % (AUTO) 1 % (0-10); LYMPHOCYTES # (AUTO) 1.4 X 10^3 (1.0-4.0); LYMPHOCYTES % (AUTO) 28 % (12-44); MEAN CORPUSCULAR HGB CONC 31 G/DL (32-36); MEAN PLATELET VOLUME 10.3 FL (7.4-10.4); MONOCYTES # (AUTO) 0.8 X 10^3 (0.0-1.0); MONOCYTES % (AUTO) 15 % (0-12); NEUTROPHILS # (AUTO) 2.8 X 10^3 (1.8-7.8); NEUTROPHILS % (AUTO) 54 % (42-75); PLATELET COUNT 101 10^3/uL (130-400)
== END 2019-01-12 | disposition home or self-care (01) ==
LOC: LAB FS 06:56
PROVIDERS: ATTEND Internal Medicine Hematology & Oncology
DX: C48.8 Malignant neoplasm of overlapping sites of retroperitoneum and peritoneum (principal)
CPT/HCPCS: 36415; 80053; 85025

== ENCOUNTER 2018-11-11 07:14 | Outpatient (RCR) | payer BC ==
[2018-11-04 08:13] LABS: HEMATOCRIT 37 % (35-52); HEMOGLOBIN 11.3 G/DL (11.5-16.0); MEAN CORPUSCULAR HEMOGLOBIN 33 PG (25-34); MEAN CORPUSCULAR HGB CONC 31 G/DL (32-36); MEAN CORPUSCULAR VOLUME 108 FL (80-99); WHITE BLOOD COUNT 7.9 10^3/uL (4.3-11.0)
[2018-11-04 08:14] LABS: BASOPHILS # (AUTO) 0.1 10^3/uL (0.0-0.1); BASOPHILS % (AUTO) 1 % (0-10); EOSINOPHILS # (AUTO) 0.2 10^3/uL (0.0-0.3); EOSINOPHILS % (AUTO) 2 % (0-10); LYMPHOCYTES # (AUTO) 1.3 X 10^3 (1.0-4.0); LYMPHOCYTES % (AUTO) 16 % (12-44); MEAN PLATELET VOLUME 10.4 FL (7.4-10.4); MONOCYTES % (AUTO) 13 % (0-12); NEUTROPHILS # (AUTO) 5.3 X 10^3 (1.8-7.8); NEUTROPHILS % (AUTO) 68 % (42-75); PLATELET COUNT 162 10^3/uL (130-400); RED CELL DISTRIBUTION WIDTH 18.8 % (10.0-14.5)
[2018-11-11 07:26] LABS: MEAN CORPUSCULAR HEMOGLOBIN 32 PG (25-34); WHITE BLOOD COUNT 7.5 10^3/uL (4.3-11.0)
[2018-11-11 07:27] LABS: HEMOGLOBIN 12.1 G/DL (11.5-16.0)
[2018-11-11 07:28] LABS: BASOPHILS % (AUTO) 1 % (0-10); EOSINOPHILS # (AUTO) 0.2 10^3/uL (0.0-0.3); EOSINOPHILS % (AUTO) 2 % (0-10); HEMATOCRIT 39 % (35-52); LYMPHOCYTES # (AUTO) 1.5 X 10^3 (1.0-4.0); LYMPHOCYTES % (AUTO) 20 % (12-44); MEAN CORPUSCULAR HGB CONC 31 G/DL (32-36); MEAN CORPUSCULAR VOLUME 104 FL (80-99); MEAN PLATELET VOLUME 10.1 FL (7.4-10.4); MONOCYTES % (AUTO) 13 % (0-12); NEUTROPHILS # (AUTO) 4.8 X 10^3 (1.8-7.8); NEUTROPHILS % (AUTO) 63 % (42-75); PLATELET COUNT 200 10^3/uL (130-400); RED CELL DISTRIBUTION WIDTH 16.8 % (10.0-14.5)
[2018-11-11 07:29] LABS: BASOPHILS # (AUTO) 0.1 10^3/uL (0.0-0.1)
[2018-11-11 07:48] LABS: ALBUMIN 3.6 GM/DL (3.2-4.5); BILIRUBIN,TOTAL 0.5 MG/DL (0.1-1.0); CREATININE SERUM 1.02 MG/DL (0.60-1.30); POTASSIUM 3.9 MMOL/L (3.6-5.0); TOTAL PROTEIN 7.1 GM/DL (6.4-8.2)
== END 2019-02-02 | disposition home or self-care (01) ==
LOC: LAB FS 07:14
PROVIDERS: ATTEND Internal Medicine Hematology & Oncology
DX: C48.8 Malignant neoplasm of overlapping sites of retroperitoneum and peritoneum (principal)
CPT/HCPCS: 36415; 80053; 85025; 86304

== ENCOUNTER 2018-12-16 07:19 | Outpatient (RCR) | payer BC ==
[2018-10-28 07:28] LABS: BASOPHILS # (AUTO) 0.1 10^3/uL (0.0-0.1); BASOPHILS % (AUTO) 0 % (0-10); EOSINOPHILS % (AUTO) 0 % (0-10); HEMATOCRIT 34 % (35-52); HEMOGLOBIN 10.5 G/DL (11.5-16.0); LYMPHOCYTES # (AUTO) 2.2 X 10^3 (1.0-4.0); LYMPHOCYTES % (AUTO) 12 % (12-44); MEAN CORPUSCULAR HEMOGLOBIN 32 PG (25-34); MEAN CORPUSCULAR HGB CONC 31 G/DL (32-36); MEAN CORPUSCULAR VOLUME 103 FL (80-99); MEAN PLATELET VOLUME 11.9 FL (7.4-10.4); MONOCYTES # (AUTO) 0.9 X 10^3 (0.0-1.0); MONOCYTES % (AUTO) 5 % (0-12); NEUTROPHILS # (AUTO) 14.1 X 10^3 (1.8-7.8); NEUTROPHILS % (AUTO) 78 % (42-75); PLATELET COUNT 58 10^3/uL (130-400)
[2018-10-28 07:50] LABS: ALBUMIN 3.3 GM/DL (3.2-4.5); BILIRUBIN,TOTAL 0.3 MG/DL (0.1-1.0); CREATININE SERUM 1.09 MG/DL (0.60-1.30); POTASSIUM 3.7 MMOL/L (3.6-5.0); TOTAL PROTEIN 6.9 GM/DL (6.4-8.2)
[2018-11-18 08:16] LABS: HEMATOCRIT 35 % (35-52); HEMOGLOBIN 11.1 G/DL (11.5-16.0); MEAN CORPUSCULAR HEMOGLOBIN 32 PG (25-34); MEAN CORPUSCULAR HGB CONC 31 G/DL (32-36); MEAN CORPUSCULAR VOLUME 102 FL (80-99); RED CELL DISTRIBUTION WIDTH 15.6 % (10.0-14.5); WHITE BLOOD COUNT 3.7 10^3/uL (4.3-11.0)
[2018-11-18 08:17] LABS: BASOPHILS % (AUTO) 1 % (0-10); EOSINOPHILS # (AUTO) 0.1 10^3/uL (0.0-0.3); EOSINOPHILS % (AUTO) 1 % (0-10); LYMPHOCYTES # (AUTO) 1.1 X 10^3 (1.0-4.0); LYMPHOCYTES % (AUTO) 31 % (12-44); MEAN PLATELET VOLUME 10.4 FL (7.4-10.4); MONOCYTES # (AUTO) 0.4 X 10^3 (0.0-1.0); MONOCYTES % (AUTO) 12 % (0-12); NEUTROPHILS % (AUTO) 55 % (42-75); PLATELET COUNT 95 10^3/uL (130-400)
[2018-12-02 07:25] LABS: HEMATOCRIT 35 % (35-52); HEMOGLOBIN 10.9 G/DL (11.5-16.0); MEAN CORPUSCULAR HEMOGLOBIN 32 PG (25-34); MEAN CORPUSCULAR VOLUME 104 FL (80-99); WHITE BLOOD COUNT 7.2 10^3/uL (4.3-11.0)
[2018-12-02 07:26] LABS: BASOPHILS % (AUTO) 0 % (0-10); EOSINOPHILS # (AUTO) 0.2 10^3/uL (0.0-0.3); EOSINOPHILS % (AUTO) 2 % (0-10); LYMPHOCYTES # (AUTO) 1.3 X 10^3 (1.0-4.0); LYMPHOCYTES % (AUTO) 18 % (12-44); MEAN CORPUSCULAR HGB CONC 31 G/DL (32-36); MEAN PLATELET VOLUME 10.8 FL (7.4-10.4); MONOCYTES # (AUTO) 0.9 X 10^3 (0.0-1.0); MONOCYTES % (AUTO) 12 % (0-12); NEUTROPHILS # (AUTO) 4.8 X 10^3 (1.8-7.8); NEUTROPHILS % (AUTO) 66 % (42-75); PLATELET COUNT 176 10^3/uL (130-400); RED CELL DISTRIBUTION WIDTH 17.9 % (10.0-14.5)
[2018-12-02 07:46] LABS: CREATININE SERUM 0.96 MG/DL (0.60-1.30); POTASSIUM 3.8 MMOL/L (3.6-5.0)
[2018-12-02 07:47] LABS: ALBUMIN 3.4 GM/DL (3.2-4.5); BILIRUBIN,TOTAL 0.4 MG/DL (0.1-1.0); CALCIUM 8.8 MG/DL (8.5-10.1); TOTAL PROTEIN 6.8 GM/DL (6.4-8.2)
[2018-12-09 07:41] LABS: HEMATOCRIT 37 % (35-52); HEMOGLOBIN 11.4 G/DL (11.5-16.0); MEAN CORPUSCULAR HEMOGLOBIN 33 PG (25-34); WHITE BLOOD COUNT 6.2 10^3/uL (4.3-11.0)
[2018-12-09 07:42] LABS: LYMPHOCYTES # (AUTO) 1.4 X 10^3 (1.0-4.0); MEAN CORPUSCULAR HGB CONC 31 G/DL (32-36); MEAN CORPUSCULAR VOLUME 106 FL (80-99); PLATELET COUNT 169 10^3/uL (130-400); RED CELL DISTRIBUTION WIDTH 16.9 % (10.0-14.5)
[2018-12-09 07:43] LABS: EOSINOPHILS # (AUTO) 0.2 10^3/uL (0.0-0.3); MEAN PLATELET VOLUME 9.7 FL (7.4-10.4); MONOCYTES # (AUTO) 0.9 X 10^3 (0.0-1.0); NEUTROPHILS % (AUTO) 61 % (42-75)
[2018-12-09 07:44] LABS: BASOPHILS % (AUTO) 1 % (0-10); EOSINOPHILS % (AUTO) 3 % (0-10); LYMPHOCYTES % (AUTO) 22 % (12-44); MONOCYTES % (AUTO) 14 % (0-12); NEUTROPHILS # (AUTO) 3.8 X 10^3 (1.8-7.8)
[2018-12-16 07:35] LABS: WHITE BLOOD COUNT 3.5 10^3/uL (4.3-11.0)
[2018-12-16 07:36] LABS: HEMATOCRIT 34 % (35-52); HEMOGLOBIN 10.8 G/DL (11.5-16.0); MEAN CORPUSCULAR HEMOGLOBIN 33 PG (25-34)
[2018-12-16 07:37] LABS: MEAN CORPUSCULAR HGB CONC 32 G/DL (32-36); MEAN CORPUSCULAR VOLUME 104 FL (80-99); PLATELET COUNT 95 10^3/uL (130-400); RED CELL DISTRIBUTION WIDTH 15.5 % (10.0-14.5)
[2018-12-16 07:38] LABS: BASOPHILS % (AUTO) 0 % (0-10); EOSINOPHILS % (AUTO) 2 % (0-10); LYMPHOCYTES % (AUTO) 34 % (12-44); MEAN PLATELET VOLUME 9.4 FL (7.4-10.4); MONOCYTES % (AUTO) 17 % (0-12); NEUTROPHILS # (AUTO) 1.6 X 10^3 (1.8-7.8); NEUTROPHILS % (AUTO) 46 % (42-75)
[2018-12-16 07:40] LABS: EOSINOPHILS # (AUTO) 0.1 10^3/uL (0.0-0.3); LYMPHOCYTES # (AUTO) 1.2 X 10^3 (1.0-4.0); MONOCYTES # (AUTO) 0.6 X 10^3 (0.0-1.0)
== END 2019-01-26 | disposition home or self-care (01) ==
LOC: LAB FS 07:19
PROVIDERS: ATTEND Internal Medicine Hematology & Oncology
DX: Z01.89 Encounter for other specified special examinations (principal)
CPT/HCPCS: 36415; 80053; 85025; 86304

== ENCOUNTER 2019-01-13 07:41 | Outpatient (RCR) | payer BC ==
[2018-12-23 08:03] LABS: BASOPHILS % (AUTO) 1 % (0-10); EOSINOPHILS % (AUTO) 0 % (0-10); HEMATOCRIT 35 % (35-52); HEMOGLOBIN 10.9 G/DL (11.5-16.0); LYMPHOCYTES # (AUTO) 1.7 X 10^3 (1.0-4.0); LYMPHOCYTES % (AUTO) 12 % (12-44); MEAN CORPUSCULAR HEMOGLOBIN 33 PG (25-34); MEAN CORPUSCULAR HGB CONC 31 G/DL (32-36); MEAN CORPUSCULAR VOLUME 105 FL (80-99); MEAN PLATELET VOLUME 10.5 FL (7.4-10.4); MONOCYTES # (AUTO) 0.9 X 10^3 (0.0-1.0); MONOCYTES % (AUTO) 6 % (0-12); NEUTROPHILS % (AUTO) 81 % (42-75); PLATELET COUNT 52 10^3/uL (130-400); RED CELL DISTRIBUTION WIDTH 16.6 % (10.0-14.5); WHITE BLOOD COUNT 14.4 10^3/uL (4.3-11.0)
[2018-12-23 08:04] LABS: BASOPHILS # (AUTO) 0.1 10^3/uL (0.0-0.1); NEUTROPHILS # (AUTO) 11.7 X 10^3 (1.8-7.8)
[2018-12-23 09:52] LABS: ALBUMIN 3.4 GM/DL (3.2-4.5); BILIRUBIN,TOTAL 0.3 MG/DL (0.1-1.0); CALCIUM 8.9 MG/DL (8.5-10.1); CREATININE SERUM 1.06 MG/DL (0.60-1.30); POTASSIUM 3.8 MMOL/L (3.6-5.0); TOTAL PROTEIN 6.7 GM/DL (6.4-8.2)
[2018-12-30 07:47] LABS: HEMATOCRIT 36 % (35-52); HEMOGLOBIN 11.2 G/DL (11.5-16.0); MEAN CORPUSCULAR HEMOGLOBIN 33 PG (25-34); MEAN CORPUSCULAR HGB CONC 31 G/DL (32-36); MEAN CORPUSCULAR VOLUME 105 FL (80-99); WHITE BLOOD COUNT 6.1 10^3/uL (4.3-11.0)
[2018-12-30 07:48] LABS: BASOPHILS % (AUTO) 1 % (0-10); EOSINOPHILS # (AUTO) 0.2 10^3/uL (0.0-0.3); EOSINOPHILS % (AUTO) 2 % (0-10); LYMPHOCYTES # (AUTO) 1.1 X 10^3 (1.0-4.0); LYMPHOCYTES % (AUTO) 19 % (12-44); MEAN PLATELET VOLUME 10.7 FL (7.4-10.4); MONOCYTES # (AUTO) 0.8 X 10^3 (0.0-1.0); MONOCYTES % (AUTO) 13 % (0-12); NEUTROPHILS % (AUTO) 65 % (42-75); PLATELET COUNT 178 10^3/uL (130-400)
[2018-12-30 07:58] LABS: ALANINE AMINOTRANSFERASE 20 U/L (0-55); ALBUMIN 3.4 GM/DL (3.2-4.5); ALKALINE PHOSPHATASE 115 U/L (40-136); BILIRUBIN,TOTAL 0.5 MG/DL (0.1-1.0); BUN/CREATININE RATIO 9; CALCIUM 8.5 MG/DL (8.5-10.1); CARBON DIOXIDE 24 MMOL/L (21-32); CHLORIDE 107 MMOL/L (98-107); CREATININE SERUM 0.91 MG/DL (0.60-1.30); GFR ESTIMATED > 60; GLUCOSE 91 MG/DL (70-105); SODIUM 142 MMOL/L (135-145); TOTAL PROTEIN 6.6 GM/DL (6.4-8.2)
[2019-01-06 08:02] LABS: HEMATOCRIT 40 % (35-52); HEMOGLOBIN 11.9 G/DL (11.5-16.0); MEAN CORPUSCULAR HEMOGLOBIN 32 PG (25-34); WHITE BLOOD COUNT 5.9 10^3/uL (4.3-11.0)
[2019-01-06 08:03] LABS: BASOPHILS # (AUTO) 0.1 10^3/uL (0.0-0.1); BASOPHILS % (AUTO) 1 % (0-10); EOSINOPHILS # (AUTO) 0.2 10^3/uL (0.0-0.3); EOSINOPHILS % (AUTO) 3 % (0-10); LYMPHOCYTES # (AUTO) 1.3 X 10^3 (1.0-4.0); LYMPHOCYTES % (AUTO) 22 % (12-44); MEAN CORPUSCULAR HGB CONC 30 G/DL (32-36); MEAN CORPUSCULAR VOLUME 110 FL (80-99); MONOCYTES # (AUTO) 0.9 X 10^3 (0.0-1.0); MONOCYTES % (AUTO) 15 % (0-12); NEUTROPHILS # (AUTO) 3.6 X 10^3 (1.8-7.8); NEUTROPHILS % (AUTO) 60 % (42-75); PLATELET COUNT 110 10^3/uL (130-400)
[2019-01-06 08:22] LABS: CHLORIDE 106 MMOL/L (98-107); SODIUM 140 MMOL/L (135-145)
[2019-01-06 08:23] LABS: ALANINE AMINOTRANSFERASE 23 U/L (0-55); ALBUMIN 3.4 GM/DL (3.2-4.5); ALKALINE PHOSPHATASE 100 U/L (40-136); BILIRUBIN,TOTAL 0.5 MG/DL (0.1-1.0); BUN/CREATININE RATIO 12; CALCIUM 8.7 MG/DL (8.5-10.1); CARBON DIOXIDE 23 MMOL/L (21-32); CREATININE SERUM 0.91 MG/DL (0.60-1.30); GFR ESTIMATED > 60; GLUCOSE 91 MG/DL (70-105); TOTAL PROTEIN 6.7 GM/DL (6.4-8.2)
== END 2019-03-23 | disposition home or self-care (01) ==
LOC: LAB FS 07:41
PROVIDERS: ATTEND Internal Medicine Hematology & Oncology
DX: Z01.89 Encounter for other specified special examinations (principal)
CPT/HCPCS: 36415; 80053; 85025; 86304

== ENCOUNTER 2019-01-13 08:00 | Outpatient (RCR) | payer BC ==
[2019-01-13 08:05] LABS: HEMATOCRIT 39 % (35-52); HEMOGLOBIN 11.4 G/DL (11.5-16.0); LYMPHOCYTES % (AUTO) 29 % (12-44); MEAN CORPUSCULAR HEMOGLOBIN 32 PG (25-34); MEAN CORPUSCULAR HGB CONC 29 G/DL (32-36); MEAN CORPUSCULAR VOLUME 110 FL (80-99); MEAN PLATELET VOLUME 10.5 FL (7.4-10.4); NEUTROPHILS % (AUTO) 51 % (42-75); PLATELET COUNT 91 10^3/uL (130-400); RED CELL DISTRIBUTION WIDTH 15.4 % (10.0-14.5); WHITE BLOOD COUNT 4.3 10^3/uL (4.3-11.0)
[2019-01-13 08:06] LABS: BASOPHILS % (AUTO) 1 % (0-10); EOSINOPHILS # (AUTO) 0.1 10^3/uL (0.0-0.3); EOSINOPHILS % (AUTO) 1 % (0-10); LYMPHOCYTES # (AUTO) 1.3 X 10^3 (1.0-4.0); MONOCYTES # (AUTO) 0.8 X 10^3 (0.0-1.0); MONOCYTES % (AUTO) 17 % (0-12); NEUTROPHILS # (AUTO) 2.2 X 10^3 (1.8-7.8)
[2019-01-13 08:28] LABS: POTASSIUM 3.8 MMOL/L (3.6-5.0)
[2019-01-13 08:29] LABS: ALBUMIN 3.2 GM/DL (3.2-4.5); BILIRUBIN,TOTAL 0.4 MG/DL (0.1-1.0); CALCIUM 8.9 MG/DL (8.5-10.1); CREATININE SERUM 0.95 MG/DL (0.60-1.30)
== END 2019-04-13 | disposition home or self-care (01) ==
LOC: LAB FS 08:00
PROVIDERS: ATTEND Internal Medicine Hematology & Oncology
DX: C48.8 Malignant neoplasm of overlapping sites of retroperitoneum and peritoneum (principal)
CPT/HCPCS: 36415; 80053; 85025

== ENCOUNTER → 2019-01-20 | Outpatient (CLI) | payer BC ==
[2019-01-20 07:43] LABS: HEMOGLOBIN 10.9 G/DL (11.5-16.0); MEAN CORPUSCULAR HEMOGLOBIN 33 PG (25-34); WHITE BLOOD COUNT 19.9 10^3/uL (4.3-11.0)
[2019-01-20 07:44] LABS: BASOPHILS # (AUTO) 0.1 10^3/uL (0.0-0.1); BASOPHILS % (AUTO) 0 % (0-10); EOSINOPHILS % (AUTO) 0 % (0-10); HEMATOCRIT 34 % (35-52); LYMPHOCYTES % (AUTO) 10 % (12-44); MEAN CORPUSCULAR HGB CONC 32 G/DL (32-36); MEAN CORPUSCULAR VOLUME 104 FL (80-99); MEAN PLATELET VOLUME 10.6 FL (7.4-10.4); MONOCYTES % (AUTO) 5 % (0-12); NEUTROPHILS # (AUTO) 16.1 X 10^3 (1.8-7.8); NEUTROPHILS % (AUTO) 81 % (42-75); PLATELET COUNT 64 10^3/uL (130-400); RED CELL DISTRIBUTION WIDTH 16.5 % (10.0-14.5)
== END ==
LOC: LAB FS 07:10
PROVIDERS: ATTEND Internal Medicine Hematology & Oncology
DX: Z01.89 Encounter for other specified special examinations (principal)
CPT/HCPCS: 36415; 85025

== ENCOUNTER 2019-01-27 07:28 | Outpatient (RCR) | payer BC ==
[2019-01-27 08:10] LABS: HEMATOCRIT 38 % (35-52); HEMOGLOBIN 11.8 G/DL (11.5-16.0); MEAN CORPUSCULAR HEMOGLOBIN 33 PG (25-34); MEAN CORPUSCULAR HGB CONC 31 G/DL (32-36); MEAN CORPUSCULAR VOLUME 106 FL (80-99); RED CELL DISTRIBUTION WIDTH 19.4 % (10.0-14.5)
[2019-01-27 08:11] LABS: BASOPHILS # (AUTO) 0.1 10^3/uL (0.0-0.1); BASOPHILS % (AUTO) 1 % (0-10); EOSINOPHILS # (AUTO) 0.1 10^3/uL (0.0-0.3); EOSINOPHILS % (AUTO) 2 % (0-10); LYMPHOCYTES # (AUTO) 1.2 X 10^3 (1.0-4.0); LYMPHOCYTES % (AUTO) 14 % (12-44); MEAN PLATELET VOLUME 11.5 FL (7.4-10.4); MONOCYTES # (AUTO) 0.9 X 10^3 (0.0-1.0); MONOCYTES % (AUTO) 10 % (0-12); NEUTROPHILS # (AUTO) 6.5 X 10^3 (1.8-7.8); NEUTROPHILS % (AUTO) 73 % (42-75); PLATELET COUNT 180 10^3/uL (130-400)
[2019-01-27 08:48] LABS: BILIRUBIN,TOTAL 0.5 MG/DL (0.1-1.0); CALCIUM 8.9 MG/DL (8.5-10.1); CREATININE SERUM 0.94 MG/DL (0.60-1.30); POTASSIUM 3.9 MMOL/L (3.6-5.0)
[2019-01-27 08:49] LABS: ALBUMIN 3.4 GM/DL (3.2-4.5); TOTAL PROTEIN 6.7 GM/DL (6.4-8.2)
== END 2019-04-27 | disposition home or self-care (01) ==
LOC: LAB FS 07:28
PROVIDERS: ATTEND Internal Medicine Hematology & Oncology
DX: C48.8 Malignant neoplasm of overlapping sites of retroperitoneum and peritoneum (principal)
CPT/HCPCS: 36415; 80053; 85025; 86304

== ENCOUNTER → 2019-02-03 | Outpatient (CLI) | payer BC | LOC: LAB FS 07:29 | PROVIDERS: ATTEND Internal Medicine Hematology & Oncology | DX: Z01.89 Encounter for other specified special examinations (principal) ==

== ENCOUNTER → 2019-02-10 | Outpatient (CLI) | payer BC ==
[2019-02-10 07:53] LABS: HEMATOCRIT 37 % (35-52); HEMOGLOBIN 11.4 G/DL (11.5-16.0); MEAN CORPUSCULAR HEMOGLOBIN 33 PG (25-34)
[2019-02-10 07:54] LABS: BASOPHILS % (AUTO) 1 % (0-10); EOSINOPHILS # (AUTO) 0.1 10^3/uL (0.0-0.3); EOSINOPHILS % (AUTO) 2 % (0-10); LYMPHOCYTES # (AUTO) 1.3 X 10^3 (1.0-4.0); LYMPHOCYTES % (AUTO) 25 % (12-44); MEAN CORPUSCULAR HGB CONC 31 G/DL (32-36); MEAN CORPUSCULAR VOLUME 103 FL (80-99); MEAN PLATELET VOLUME 10.2 FL (7.4-10.4); MONOCYTES # (AUTO) 0.6 X 10^3 (0.0-1.0); MONOCYTES % (AUTO) 12 % (0-12); NEUTROPHILS % (AUTO) 60 % (42-75); PLATELET COUNT 90 10^3/uL (130-400); RED CELL DISTRIBUTION WIDTH 15.8 % (10.0-14.5)
== END ==
LOC: LAB FS 07:26
PROVIDERS: ATTEND Internal Medicine Hematology & Oncology
DX: Z01.89 Encounter for other specified special examinations (principal)
CPT/HCPCS: 36415; 85025

== ENCOUNTER → 2019-02-22 | Outpatient (CLI) | payer BC ==
[~2019-02-22] MED LIST changes: +NS 100 ML (IVPB) BAG IV ONE; -NS 50 ML (IVPB) BAG IV ONE
--- NOTE | 2019-02-22 13:30 | Diagnostic Imaging Report ---
EXAMINATION: CT chest, abdomen, and pelvis with and without contrast. TECHNIQUE: Precontrast images were obtained of the chest, abdomen, and pelvis. Multiple contiguous axial images were obtained through the chest, abdomen, and pelvis after administration of intravenous contrast. Auto Exposure Controls were utilized during the CT exam to meet ALARA standards for radiation dose reduction. HISTORY: The only history available is "Malignant neoplasm of overlapping sites". The source of the malignancy is not available to me at the time of interpretation. COMPARISON: 06/17/2018 FINDINGS: The lungs are clear without edema or pneumonia. No pleural effusion or pneumothorax. There is a 3 mm triangular right upper lobe nodule, likely an intraparenchymal lymph node but indeterminate. There is a 3 mm lingular nodule, also indeterminate. Heart size is normal. There is a small pericardial effusion, new from prior exam. Aorta is normal in caliber. There is no axillary or supraclavicular lymphadenopathy. There is no mediastinal lymphadenopathy. Right port catheter tip terminates in the superior vena cava. The liver is normal without focal lesion. There is no biliary ductal dilation. Gallbladder is absent. Pancreas is normal. Spleen is normal. Adrenal glands are normal. The kidneys are normal. There is no hydronephrosis. Urinary bladder is normal. There are no dilated loops of large or small bowel. No obstruction or inflammation. There is a small amount of free fluid in the pelvis. No free air. Bilateral external iliac lymph nodes have decreased in size with a short axis diameter on the left of 6 mm and on the right of 9 mm, previously 11 and 13 mm respectively. No new enlarged lymph nodes are seen. Aorta is normal in caliber without aneurysm. There are no suspicious osseus lesions. IMPRESSION: 1. Continued decrease in size of pelvic lymph nodes, no new lymphadenopathy. 2. Tiny indeterminate pulmonary nodules. 3. New small pericardial effusion. Dictated by: Dictated on workstation # [id number]
== END ==
LOC: RAD FS 10:05
PROVIDERS: ATTEND Internal Medicine Hematology & Oncology
DX: I31.3 Pericardial effusion (noninflammatory) (principal); C48.8 Malignant neoplasm of overlapping sites of retroperitoneum and peritoneum
CPT/HCPCS: 71270; 74178

== ENCOUNTER 2019-03-03 07:15 | Outpatient (RCR) | payer BC ==
[2019-02-24 08:12] LABS: HEMATOCRIT 38 % (35-52); HEMOGLOBIN 11.8 G/DL (11.5-16.0); MEAN CORPUSCULAR HEMOGLOBIN 33 PG (25-34); MEAN CORPUSCULAR HGB CONC 31 G/DL (32-36); MEAN CORPUSCULAR VOLUME 106 FL (80-99); RED CELL DISTRIBUTION WIDTH 17.3 % (10.0-14.5); WHITE BLOOD COUNT 9.4 10^3/uL (4.3-11.0)
[2019-02-24 08:13] LABS: BASOPHILS % (AUTO) 0 % (0-10); EOSINOPHILS # (AUTO) 0.2 10^3/uL (0.0-0.3); EOSINOPHILS % (AUTO) 2 % (0-10); LYMPHOCYTES # (AUTO) 1.3 X 10^3 (1.0-4.0); LYMPHOCYTES % (AUTO) 14 % (12-44); MEAN PLATELET VOLUME 11.1 FL (7.4-10.4); MONOCYTES % (AUTO) 11 % (0-12); NEUTROPHILS # (AUTO) 6.8 X 10^3 (1.8-7.8); NEUTROPHILS % (AUTO) 72 % (42-75); PLATELET COUNT 183 10^3/uL (130-400)
[2019-02-24 08:41] LABS: ALKALINE PHOSPHATASE 127 U/L (40-136); BILIRUBIN,TOTAL 0.5 MG/DL (0.1-1.0); BUN/CREATININE RATIO 10; CARBON DIOXIDE 22 MMOL/L (21-32); CHLORIDE 106 MMOL/L (98-107); CREATININE SERUM 0.91 MG/DL (0.60-1.30); GFR ESTIMATED > 60; GLUCOSE 95 MG/DL (70-105); POTASSIUM 3.8 MMOL/L (3.6-5.0); SODIUM 141 MMOL/L (135-145)
[2019-02-24 08:42] LABS: ALANINE AMINOTRANSFERASE 24 U/L (0-55); ALBUMIN 3.2 GM/DL (3.2-4.5); TOTAL PROTEIN 6.8 GM/DL (6.4-8.2)
[2019-03-03 07:41] LABS: HEMATOCRIT 39 % (35-52); HEMOGLOBIN 11.9 G/DL (11.5-16.0); MEAN CORPUSCULAR HEMOGLOBIN 32 PG (25-34); MEAN CORPUSCULAR HGB CONC 31 G/DL (32-36); MEAN CORPUSCULAR VOLUME 104 FL (80-99); PLATELET COUNT 163 10^3/uL (130-400); RED CELL DISTRIBUTION WIDTH 16.6 % (10.0-14.5); WHITE BLOOD COUNT 8.5 10^3/uL (4.3-11.0)
[2019-03-03 07:42] LABS: BASOPHILS % (AUTO) 1 % (0-10); EOSINOPHILS # (AUTO) 0.2 10^3/uL (0.0-0.3); EOSINOPHILS % (AUTO) 2 % (0-10); LYMPHOCYTES # (AUTO) 1.3 X 10^3 (1.0-4.0); LYMPHOCYTES % (AUTO) 16 % (12-44); MEAN PLATELET VOLUME 10.5 FL (7.4-10.4); MONOCYTES # (AUTO) 0.9 X 10^3 (0.0-1.0); MONOCYTES % (AUTO) 11 % (0-12); NEUTROPHILS # (AUTO) 5.9 X 10^3 (1.8-7.8); NEUTROPHILS % (AUTO) 70 % (42-75)
== END 2019-05-25 | disposition home or self-care (01) ==
LOC: LAB FS 07:15
PROVIDERS: ATTEND Internal Medicine Hematology & Oncology
DX: Z01.89 Encounter for other specified special examinations (principal)
CPT/HCPCS: 36415; 80053; 85025; 86304

== ENCOUNTER 2019-03-24 07:21 | Outpatient (RCR) | payer BC | END 2019-06-22 | disposition home or self-care (01) | LOC: LAB FS 07:21 | PROVIDERS: ATTEND Internal Medicine Hematology & Oncology | DX: C48.8 Malignant neoplasm of overlapping sites of retroperitoneum and peritoneum (principal) | CPT/HCPCS: 36415; 80053; 85025; 86304 ==

== ENCOUNTER → 2019-04-20 | Outpatient (CLI) | payer BC ==
[2019-04-20 17:13] LABS: BASOPHILS % (AUTO) 0 % (0-10); EOSINOPHILS % (AUTO) 2 % (0-10); HEMATOCRIT 36 % (35-52); HEMOGLOBIN 11.4 G/DL (11.5-16.0); LYMPHOCYTES % (AUTO) 27 % (12-44); MEAN CORPUSCULAR HEMOGLOBIN 33 PG (25-34); MEAN CORPUSCULAR HGB CONC 32 G/DL (32-36); MEAN CORPUSCULAR VOLUME 104 FL (80-99); MEAN PLATELET VOLUME 10.1 FL (7.4-10.4); MONOCYTES % (AUTO) 13 % (0-12); NEUTROPHILS # (AUTO) 3.6 X 10^3 (1.8-7.8); NEUTROPHILS % (AUTO) 57 % (42-75); PLATELET COUNT 182 10^3/uL (130-400); RED CELL DISTRIBUTION WIDTH 15.9 % (10.0-14.5); WHITE BLOOD COUNT 6.4 10^3/uL (4.3-11.0)
[2019-04-20 17:14] LABS: EOSINOPHILS # (AUTO) 0.1 10^3/uL (0.0-0.3); LYMPHOCYTES # (AUTO) 1.7 X 10^3 (1.0-4.0); MONOCYTES # (AUTO) 0.8 X 10^3 (0.0-1.0)
[2019-04-20 17:47] LABS: ALANINE AMINOTRANSFERASE 25 U/L (0-55); ALKALINE PHOSPHATASE 127 U/L (40-136); BILIRUBIN,TOTAL 0.3 MG/DL (0.1-1.0); BUN/CREATININE RATIO 11; CALCIUM 9.2 MG/DL (8.5-10.1); CARBON DIOXIDE 25 MMOL/L (21-32); CHLORIDE 103 MMOL/L (98-107); CREATININE SERUM 0.92 MG/DL (0.60-1.30); GFR ESTIMATED > 60; GLUCOSE 83 MG/DL (70-105); POTASSIUM 4.3 MMOL/L (3.6-5.0); SODIUM 140 MMOL/L (135-145); TOTAL PROTEIN 7.1 GM/DL (6.4-8.2)
[2019-04-20 17:48] LABS: ALBUMIN 3.4 GM/DL (3.2-4.5)
== END ==
LOC: LAB FS 16:43
PROVIDERS: ATTEND Internal Medicine Hematology & Oncology
DX: Z01.89 Encounter for other specified special examinations (principal)
CPT/HCPCS: 36415; 80053; 85025; 86304

== ENCOUNTER 2019-05-26 07:13 | Outpatient (RCR) | payer BC ==
[2019-04-07 07:47] LABS: EOSINOPHILS % (AUTO) 1 % (0-10); HEMATOCRIT 35 % (35-52); HEMOGLOBIN 11.1 G/DL (11.5-16.0); LYMPHOCYTES % (AUTO) 25 % (12-44); MEAN CORPUSCULAR HEMOGLOBIN 32 PG (25-34); MEAN CORPUSCULAR HGB CONC 32 G/DL (32-36); MEAN CORPUSCULAR VOLUME 101 FL (80-99); MEAN PLATELET VOLUME 9.4 FL (7.4-10.4); MONOCYTES % (AUTO) 10 % (0-12); NEUTROPHILS % (AUTO) 63 % (42-75); PLATELET COUNT 76 10^3/uL (130-400); RED CELL DISTRIBUTION WIDTH 13.7 % (10.0-14.5); WHITE BLOOD COUNT 4.8 10^3/uL (4.3-11.0)
[2019-04-07 07:48] LABS: BASOPHILS % (AUTO) 0 % (0-10); EOSINOPHILS # (AUTO) 0.1 10^3/uL (0.0-0.3); LYMPHOCYTES # (AUTO) 1.2 X 10^3 (1.0-4.0); MONOCYTES # (AUTO) 0.5 X 10^3 (0.0-1.0)
[2019-04-28 08:26] LABS: HEMATOCRIT 38 % (35-52); HEMOGLOBIN 11.8 G/DL (11.5-16.0); MEAN CORPUSCULAR HEMOGLOBIN 32 PG (25-34); MEAN CORPUSCULAR HGB CONC 31 G/DL (32-36); MEAN CORPUSCULAR VOLUME 103 FL (80-99); MEAN PLATELET VOLUME 9.9 FL (7.4-10.4); PLATELET COUNT 151 10^3/uL (130-400); RED CELL DISTRIBUTION WIDTH 15.7 % (10.0-14.5); WHITE BLOOD COUNT 7.6 10^3/uL (4.3-11.0)
[2019-04-28 08:27] LABS: BASOPHILS % (AUTO) 1 % (0-10); EOSINOPHILS # (AUTO) 0.1 10^3/uL (0.0-0.3); EOSINOPHILS % (AUTO) 2 % (0-10); LYMPHOCYTES # (AUTO) 1.7 X 10^3 (1.0-4.0); LYMPHOCYTES % (AUTO) 22 % (12-44); MONOCYTES # (AUTO) 1.1 X 10^3 (0.0-1.0); MONOCYTES % (AUTO) 14 % (0-12); NEUTROPHILS # (AUTO) 4.6 X 10^3 (1.8-7.8); NEUTROPHILS % (AUTO) 61 % (42-75)
[2019-05-05 07:58] LABS: HEMATOCRIT 36 % (35-52); HEMOGLOBIN 11.6 G/DL (11.5-16.0); MEAN CORPUSCULAR HEMOGLOBIN 32 PG (25-34); WHITE BLOOD COUNT 4.4 10^3/uL (4.3-11.0)
[2019-05-05 07:59] LABS: LYMPHOCYTES % (AUTO) 29 % (12-44); MEAN CORPUSCULAR HGB CONC 32 G/DL (32-36); MEAN CORPUSCULAR VOLUME 101 FL (80-99); MEAN PLATELET VOLUME 10.5 FL (7.4-10.4); MONOCYTES % (AUTO) 16 % (0-12); NEUTROPHILS % (AUTO) 52 % (42-75); PLATELET COUNT 87 10^3/uL (130-400); RED CELL DISTRIBUTION WIDTH 14.5 % (10.0-14.5)
[2019-05-05 08:00] LABS: BASOPHILS % (AUTO) 1 % (0-10); EOSINOPHILS % (AUTO) 1 % (0-10); LYMPHOCYTES # (AUTO) 1.3 X 10^3 (1.0-4.0); MONOCYTES # (AUTO) 0.7 X 10^3 (0.0-1.0); NEUTROPHILS # (AUTO) 2.3 X 10^3 (1.8-7.8)
[2019-05-19 07:19] LABS: HEMATOCRIT 35 % (35-52); HEMOGLOBIN 11.1 G/DL (11.5-16.0); MEAN CORPUSCULAR HEMOGLOBIN 32 PG (25-34); MEAN CORPUSCULAR HGB CONC 31 G/DL (32-36); MEAN CORPUSCULAR VOLUME 103 FL (80-99); MEAN PLATELET VOLUME 10.6 FL (7.4-10.4); PLATELET COUNT 181 10^3/uL (130-400); RED CELL DISTRIBUTION WIDTH 16.4 % (10.0-14.5); WHITE BLOOD COUNT 8.2 10^3/uL (4.3-11.0)
[2019-05-19 07:20] LABS: BASOPHILS % (AUTO) 0 % (0-10); EOSINOPHILS # (AUTO) 0.2 10^3/uL (0.0-0.3); EOSINOPHILS % (AUTO) 2 % (0-10); LYMPHOCYTES # (AUTO) 1.3 X 10^3 (1.0-4.0); LYMPHOCYTES % (AUTO) 16 % (12-44); MONOCYTES # (AUTO) 0.8 X 10^3 (0.0-1.0); MONOCYTES % (AUTO) 10 % (0-12); NEUTROPHILS # (AUTO) 5.8 X 10^3 (1.8-7.8); NEUTROPHILS % (AUTO) 71 % (42-75)
[2019-05-19 07:44] LABS: ALANINE AMINOTRANSFERASE 21 U/L (0-55); ALBUMIN 3.3 GM/DL (3.2-4.5); ALKALINE PHOSPHATASE 128 U/L (40-136); BILIRUBIN,TOTAL 0.4 MG/DL (0.1-1.0); BUN/CREATININE RATIO 9; CALCIUM 8.6 MG/DL (8.5-10.1); CARBON DIOXIDE 23 MMOL/L (21-32); CHLORIDE 106 MMOL/L (98-107); CREATININE SERUM 0.92 MG/DL (0.60-1.30); GFR ESTIMATED > 60; GLUCOSE 98 MG/DL (70-105); POTASSIUM 3.8 MMOL/L (3.6-5.0); SODIUM 142 MMOL/L (135-145); TOTAL PROTEIN 6.5 GM/DL (6.4-8.2)
[2019-05-26 07:43] LABS: HEMATOCRIT 37 % (35-52); HEMOGLOBIN 11.9 G/DL (11.5-16.0); MEAN CORPUSCULAR HEMOGLOBIN 33 PG (25-34); MEAN CORPUSCULAR HGB CONC 33 G/DL (32-36); MEAN CORPUSCULAR VOLUME 103 FL (80-99); PLATELET COUNT 140 10^3/uL (130-400); RED CELL DISTRIBUTION WIDTH 15.9 % (10.0-14.5); WHITE BLOOD COUNT 9.1 10^3/uL (4.3-11.0)
[2019-05-26 07:44] LABS: BASOPHILS % (AUTO) 0 % (0-10); EOSINOPHILS % (AUTO) 2 % (0-10); LYMPHOCYTES % (AUTO) 16 % (12-44); MEAN PLATELET VOLUME 10.5 FL (7.4-10.4); MONOCYTES % (AUTO) 10 % (0-12); NEUTROPHILS % (AUTO) 71 % (42-75)
[2019-05-26 07:45] LABS: EOSINOPHILS # (AUTO) 0.2 10^3/uL (0.0-0.3); LYMPHOCYTES # (AUTO) 1.5 X 10^3 (1.0-4.0); MONOCYTES # (AUTO) 0.9 X 10^3 (0.0-1.0); NEUTROPHILS # (AUTO) 6.4 X 10^3 (1.8-7.8)
== END 2019-07-06 | disposition home or self-care (01) ==
LOC: LAB FS 07:13
PROVIDERS: ATTEND Internal Medicine Hematology & Oncology
DX: Z01.89 Encounter for other specified special examinations (principal)
CPT/HCPCS: 36415; 80053; 85025; 86304

== ENCOUNTER → 2019-06-16 | Outpatient (CLI) | payer BC ==
--- NOTE | 2019-06-16 09:38 | Diagnostic Imaging Report ---
PROCEDURE: CT chest, abdomen, and pelvis with and without contrast. TECHNIQUE: Precontrast images were obtained of the chest, abdomen, and pelvis. Multiple contiguous axial images were obtained through the chest, abdomen, and pelvis after administration of intravenous contrast. Auto Exposure Controls were utilized during the CT exam to meet ALARA standards for radiation dose reduction. INDICATION: History of ovarian cancer. Follow-up. COMPARISON: 02/22/2019 FINDINGS: CT chest: Cardiomediastinal structures again show mild pericardial effusion. This does appear slightly increased in volume when compared to 02/22/2019. It measures 8 mm in thickness anterior to the right ventricle. This is in comparison to 5 mm previously. Heart size is otherwise within normal limits. No pathologically enlarged or morphologically abnormal adenopathy is seen within the mediastinum, jamie, nor axilla. Mild scattered calcified aortic and coronary atherosclerosis is noted. Evaluation of the lung baez demonstrates a 5 mm subpleural micronodule within the superior margins of the right middle lobe ((image 37, series 3). This is stable compared to 02/22/2019. A few other small 2-3 mm micronodules are also noted within the right lower lobe and lingula (images 51 and 42, series 3). These are stable as well. No new suspicious pulmonary nodules or masses are identified. There is no focal consolidation, large effusion, no pneumothorax. Osseous structures show no acute abnormalities. No lytic or blastic bony lesions are identified. CT ABDOMEN: Normal appendix cannot be adequately identified, but there is no pericecal inflammation. Small bowel loops are nondistended. The kidneys, adrenal glands, and pancreas have a normal CT appearance. Liver is diffusely hypodense on this postcontrast exam consistent with hepatic steatosis. No focal hepatic lesions are identified. There is mild splenomegaly. Spleen measures 15.3 x 8 x 14.5 cm. No focal splenic lesions are identified. This is stable compared to prior exam as well. There is no loculated fluid collection, free fluid, no free air within the abdomen. No abnormal mesenteric or retroperitoneal adenopathy is seen. Osseous structures show no acute abnormalities. Pelvis: Bilateral iliac chain lymph nodes are stable. Reference lymph node on the right measures 8 mm in shortest axis dimension, comparison to 10 mm previously. There is some residual slight stranding of the surrounding fat. Previously described left iliac chain lymph node measures 6 mm in shortest axis dimension. This is in comparison to 6 mm previously. No new masses or adenopathy are seen within the pelvis. Trace amount of free fluid is noted. Uterus is retroflexed. There is no loculated fluid collection or free air. Osseous structures show no acute abnormalities. IMPRESSION: 1. Slight interval increase in otherwise small pericardial effusion. 2. Stable small pulmonary micronodules bilaterally. 3. Trace amount of free fluid within the pelvis. 4. Stable bilateral iliac chain lymph nodes. No new mass or adenopathy within the chest, abdomen, or pelvis. 5. Hepatic steatosis. 6. Mild splenomegaly. Dictated by: Dictated on workstation # [id number]
== END ==
LOC: RAD FS 07:52
PROVIDERS: ATTEND Internal Medicine Hematology & Oncology
DX: C48.8 Malignant neoplasm of overlapping sites of retroperitoneum and peritoneum (principal); I31.3 Pericardial effusion (noninflammatory); R91.8 Other nonspecific abnormal finding of lung field; K76.0 Fatty (change of) liver, not elsewhere classified
CPT/HCPCS: 71270; 74178

== ENCOUNTER 2019-06-30 07:05 | Outpatient (RCR) | payer BC ==
[2019-06-02 09:00] LABS: WHITE BLOOD COUNT 5.3 10^3/uL (4.3-11.0)
[2019-06-02 09:01] LABS: BASOPHILS % (AUTO) 1 % (0-10); EOSINOPHILS % (AUTO) 1 % (0-10); HEMATOCRIT 32 % (35-52); HEMOGLOBIN 10.6 G/DL (11.5-16.0); LYMPHOCYTES # (AUTO) 1.3 X 10^3 (1.0-4.0); LYMPHOCYTES % (AUTO) 24 % (12-44); MEAN CORPUSCULAR HEMOGLOBIN 33 PG (25-34); MEAN CORPUSCULAR HGB CONC 33 G/DL (32-36); MEAN CORPUSCULAR VOLUME 101 FL (80-99); MEAN PLATELET VOLUME 10.9 FL (7.4-10.4); MONOCYTES # (AUTO) 0.8 X 10^3 (0.0-1.0); MONOCYTES % (AUTO) 14 % (0-12); NEUTROPHILS # (AUTO) 3.1 X 10^3 (1.8-7.8); NEUTROPHILS % (AUTO) 60 % (42-75); PLATELET COUNT 78 10^3/uL (130-400); RED CELL DISTRIBUTION WIDTH 14.5 % (10.0-14.5)
[2019-06-02 09:02] LABS: EOSINOPHILS # (AUTO) 0.1 10^3/uL (0.0-0.3)
[2019-06-16 08:12] LABS: HEMATOCRIT 38 % (35-52); HEMOGLOBIN 11.8 G/DL (11.5-16.0); MEAN CORPUSCULAR HEMOGLOBIN 33 PG (25-34); MEAN CORPUSCULAR HGB CONC 31 G/DL (32-36); MEAN CORPUSCULAR VOLUME 105 FL (80-99); PLATELET COUNT 202 10^3/uL (130-400); RED CELL DISTRIBUTION WIDTH 17.1 % (10.0-14.5); WHITE BLOOD COUNT 11.6 10^3/uL (4.3-11.0)
[2019-06-16 08:13] LABS: MEAN PLATELET VOLUME 10.3 FL (7.4-10.4)
[2019-06-16 08:15] LABS: BASOPHILS # (AUTO) 0.1 10^3/uL (0.0-0.1); BASOPHILS % (AUTO) 0 % (0-10); EOSINOPHILS # (AUTO) 0.2 10^3/uL (0.0-0.3); EOSINOPHILS % (AUTO) 2 % (0-10); LYMPHOCYTES # (AUTO) 1.6 X 10^3 (1.0-4.0); LYMPHOCYTES % (AUTO) 14 % (12-44); MONOCYTES % (AUTO) 9 % (0-12); NEUTROPHILS # (AUTO) 8.6 X 10^3 (1.8-7.8); NEUTROPHILS % (AUTO) 75 % (42-75)
[2019-06-16 08:30] LABS: CREATININE SERUM 0.97 MG/DL (0.60-1.30)
[2019-06-16 08:32] LABS: BILIRUBIN,TOTAL 0.4 MG/DL (0.1-1.0); CALCIUM 8.8 MG/DL (8.5-10.1)
[2019-06-16 08:33] LABS: ALBUMIN 3.6 GM/DL (3.2-4.5); TOTAL PROTEIN 6.9 GM/DL (6.4-8.2)
[2019-06-23 07:57] LABS: BASOPHILS % (AUTO) 1 % (0-10); EOSINOPHILS % (AUTO) 2 % (0-10); HEMATOCRIT 38 % (35-52); HEMOGLOBIN 11.6 G/DL (11.5-16.0); LYMPHOCYTES % (AUTO) 16 % (12-44); MEAN CORPUSCULAR HEMOGLOBIN 33 PG (25-34); MEAN CORPUSCULAR HGB CONC 31 G/DL (32-36); MEAN CORPUSCULAR VOLUME 107 FL (80-99); MEAN PLATELET VOLUME 10.5 FL (7.4-10.4); MONOCYTES % (AUTO) 9 % (0-12); PLATELET COUNT 131 10^3/uL (130-400); RED CELL DISTRIBUTION WIDTH 15.9 % (10.0-14.5); WHITE BLOOD COUNT 9.5 10^3/uL (4.3-11.0)
[2019-06-23 07:58] LABS: BASOPHILS # (AUTO) 0.1 10^3/uL (0.0-0.1); EOSINOPHILS # (AUTO) 0.2 10^3/uL (0.0-0.3); LYMPHOCYTES # (AUTO) 1.5 X 10^3 (1.0-4.0); MONOCYTES # (AUTO) 0.9 X 10^3 (0.0-1.0); NEUTROPHILS # (AUTO) 6.8 X 10^3 (1.8-7.8); NEUTROPHILS % (AUTO) 72 % (42-75)
== END 2019-08-31 | disposition home or self-care (01) ==
LOC: LAB FS 07:05
PROVIDERS: ATTEND Internal Medicine Hematology & Oncology
DX: C48.8 Malignant neoplasm of overlapping sites of retroperitoneum and peritoneum (principal)
CPT/HCPCS: 36415; 80053; 85025; 86304

== ENCOUNTER 2019-08-25 07:20 | Outpatient (RCR) | payer BC ==
[2019-06-30 07:27] LABS: BASOPHILS % (AUTO) 1 % (0-10); EOSINOPHILS % (AUTO) 1 % (0-10); HEMATOCRIT 35 % (35-52); HEMOGLOBIN 11.1 G/DL (11.5-16.0); LYMPHOCYTES % (AUTO) 22 % (12-44); MEAN CORPUSCULAR HEMOGLOBIN 33 PG (25-34); MEAN CORPUSCULAR HGB CONC 32 G/DL (32-36); MEAN CORPUSCULAR VOLUME 104 FL (80-99); MEAN PLATELET VOLUME 10.3 FL (7.4-10.4); MONOCYTES % (AUTO) 13 % (0-12); NEUTROPHILS % (AUTO) 63 % (42-75); PLATELET COUNT 71 10^3/uL (130-400); RED CELL DISTRIBUTION WIDTH 14.6 % (10.0-14.5); WHITE BLOOD COUNT 5.7 10^3/uL (4.3-11.0)
[2019-06-30 07:28] LABS: EOSINOPHILS # (AUTO) 0.1 10^3/uL (0.0-0.3); LYMPHOCYTES # (AUTO) 1.3 X 10^3 (1.0-4.0); MONOCYTES # (AUTO) 0.7 X 10^3 (0.0-1.0); NEUTROPHILS # (AUTO) 3.6 X 10^3 (1.8-7.8)
[2019-07-14 07:53] LABS: HEMATOCRIT 35 % (35-52); HEMOGLOBIN 11.2 G/DL (11.5-16.0); MEAN CORPUSCULAR HEMOGLOBIN 34 PG (25-34); MEAN CORPUSCULAR HGB CONC 32 G/DL (32-36); MEAN CORPUSCULAR VOLUME 107 FL (80-99); PLATELET COUNT 170 10^3/uL (130-400); RED CELL DISTRIBUTION WIDTH 16.1 % (10.0-14.5); WHITE BLOOD COUNT 5.5 10^3/uL (4.3-11.0)
[2019-07-14 07:54] LABS: BASOPHILS % (AUTO) 1 % (0-10); EOSINOPHILS # (AUTO) 0.2 10^3/uL (0.0-0.3); EOSINOPHILS % (AUTO) 3 % (0-10); LYMPHOCYTES # (AUTO) 1.2 X 10^3 (1.0-4.0); LYMPHOCYTES % (AUTO) 21 % (12-44); MEAN PLATELET VOLUME 10.5 FL (7.4-10.4); MONOCYTES # (AUTO) 0.7 X 10^3 (0.0-1.0); MONOCYTES % (AUTO) 12 % (0-12); NEUTROPHILS # (AUTO) 3.5 X 10^3 (1.8-7.8); NEUTROPHILS % (AUTO) 63 % (42-75)
[2019-07-14 08:20] LABS: BUN/CREATININE RATIO 10; CARBON DIOXIDE 26 MMOL/L (21-32); CHLORIDE 106 MMOL/L (98-107); CREATININE SERUM 0.93 MG/DL (0.60-1.30); GFR ESTIMATED > 60; GLUCOSE 97 MG/DL (70-105); SODIUM 143 MMOL/L (135-145)
[2019-07-14 08:21] LABS: ALANINE AMINOTRANSFERASE 24 U/L (0-55); ALBUMIN 3.3 GM/DL (3.2-4.5); ALKALINE PHOSPHATASE 128 U/L (40-136); BILIRUBIN,TOTAL 0.6 MG/DL (0.1-1.0); CALCIUM 8.8 MG/DL (8.5-10.1); TOTAL PROTEIN 6.2 GM/DL (6.4-8.2)
[2019-07-21 07:54] LABS: BASOPHILS % (AUTO) 1 % (0-10); EOSINOPHILS % (AUTO) 4 % (0-10); HEMATOCRIT 36 % (35-52); HEMOGLOBIN 11.5 G/DL (11.5-16.0); LYMPHOCYTES # (AUTO) 1.2 X 10^3 (1.0-4.0); LYMPHOCYTES % (AUTO) 23 % (12-44); MEAN CORPUSCULAR HEMOGLOBIN 33 PG (25-34); MEAN CORPUSCULAR HGB CONC 32 G/DL (32-36); MEAN CORPUSCULAR VOLUME 106 FL (80-99); MEAN PLATELET VOLUME 10.1 FL (7.4-10.4); MONOCYTES % (AUTO) 15 % (0-12); NEUTROPHILS # (AUTO) 2.9 X 10^3 (1.8-7.8); NEUTROPHILS % (AUTO) 57 % (42-75); PLATELET COUNT 127 10^3/uL (130-400); RED CELL DISTRIBUTION WIDTH 15.2 % (10.0-14.5)
[2019-07-21 07:55] LABS: EOSINOPHILS # (AUTO) 0.2 10^3/uL (0.0-0.3); MONOCYTES # (AUTO) 0.8 X 10^3 (0.0-1.0)
[2019-07-28 07:40] LABS: HEMATOCRIT 34 % (35-52); HEMOGLOBIN 10.8 G/DL (11.5-16.0); MEAN CORPUSCULAR HEMOGLOBIN 33 PG (25-34); MEAN CORPUSCULAR HGB CONC 31 G/DL (32-36); MEAN CORPUSCULAR VOLUME 105 FL (80-99); MEAN PLATELET VOLUME 9.9 FL (7.4-10.4); PLATELET COUNT 68 10^3/uL (130-400); RED CELL DISTRIBUTION WIDTH 13.7 % (10.0-14.5); WHITE BLOOD COUNT 3.5 10^3/uL (4.3-11.0)
[2019-07-28 07:41] LABS: BASOPHILS % (AUTO) 1 % (0-10); EOSINOPHILS # (AUTO) 0.1 10^3/uL (0.0-0.3); EOSINOPHILS % (AUTO) 2 % (0-10); LYMPHOCYTES # (AUTO) 1.1 X 10^3 (1.0-4.0); LYMPHOCYTES % (AUTO) 32 % (12-44); MONOCYTES # (AUTO) 0.7 X 10^3 (0.0-1.0); MONOCYTES % (AUTO) 19 % (0-12); NEUTROPHILS # (AUTO) 1.6 X 10^3 (1.8-7.8); NEUTROPHILS % (AUTO) 46 % (42-75)
[2019-08-11 09:03] LABS: HEMATOCRIT 36 % (35-52); HEMOGLOBIN 11.4 G/DL (11.5-16.0); MEAN CORPUSCULAR HEMOGLOBIN 33 PG (25-34); MEAN CORPUSCULAR HGB CONC 31 G/DL (32-36); MEAN CORPUSCULAR VOLUME 106 FL (80-99); PLATELET COUNT 164 10^3/uL (130-400); RED CELL DISTRIBUTION WIDTH 15.8 % (10.0-14.5); WHITE BLOOD COUNT 5.7 10^3/uL (4.3-11.0)
[2019-08-11 09:04] LABS: BASOPHILS % (AUTO) 1 % (0-10); EOSINOPHILS # (AUTO) 0.2 10^3/uL (0.0-0.3); EOSINOPHILS % (AUTO) 3 % (0-10); LYMPHOCYTES # (AUTO) 1.1 X 10^3 (1.0-4.0); LYMPHOCYTES % (AUTO) 19 % (12-44); MEAN PLATELET VOLUME 10.4 FL (7.4-10.4); MONOCYTES # (AUTO) 0.8 X 10^3 (0.0-1.0); MONOCYTES % (AUTO) 14 % (0-12); NEUTROPHILS # (AUTO) 3.6 X 10^3 (1.8-7.8); NEUTROPHILS % (AUTO) 63 % (42-75)
[2019-08-11 09:37] LABS: ALBUMIN 3.2 GM/DL (3.2-4.5); BILIRUBIN,TOTAL 0.6 MG/DL (0.1-1.0); CALCIUM 8.9 MG/DL (8.5-10.1); CREATININE SERUM 0.98 MG/DL (0.60-1.30); POTASSIUM 3.9 MMOL/L (3.6-5.0); TOTAL PROTEIN 6.2 GM/DL (6.4-8.2)
[2019-08-18 07:33] LABS: EOSINOPHILS % (AUTO) 4 % (0-10); HEMATOCRIT 38 % (35-52); HEMOGLOBIN 11.6 G/DL (11.5-16.0); LYMPHOCYTES % (AUTO) 25 % (12-44); MEAN CORPUSCULAR HEMOGLOBIN 33 PG (25-34); MEAN CORPUSCULAR HGB CONC 31 G/DL (32-36); MEAN CORPUSCULAR VOLUME 107 FL (80-99); MEAN PLATELET VOLUME 10.7 FL (7.4-10.4); MONOCYTES % (AUTO) 15 % (0-12); NEUTROPHILS % (AUTO) 56 % (42-75); PLATELET COUNT 121 10^3/uL (130-400); WHITE BLOOD COUNT 5.1 10^3/uL (4.3-11.0)
[2019-08-18 07:34] LABS: BASOPHILS % (AUTO) 1 % (0-10); EOSINOPHILS # (AUTO) 0.2 10^3/uL (0.0-0.3); LYMPHOCYTES # (AUTO) 1.3 X 10^3 (1.0-4.0); MONOCYTES # (AUTO) 0.7 X 10^3 (0.0-1.0); NEUTROPHILS # (AUTO) 2.9 X 10^3 (1.8-7.8)
[2019-08-18 08:02] LABS: BILIRUBIN,TOTAL 0.6 MG/DL (0.1-1.0); CALCIUM 8.4 MG/DL (8.5-10.1); CREATININE SERUM 0.95 MG/DL (0.60-1.30); TOTAL PROTEIN 6.2 GM/DL (6.4-8.2)
[2019-08-25 07:41] LABS: HEMATOCRIT 35 % (35-52); HEMOGLOBIN 11.1 G/DL (11.5-16.0); MEAN CORPUSCULAR HEMOGLOBIN 33 PG (25-34); MEAN CORPUSCULAR HGB CONC 32 G/DL (32-36); MEAN CORPUSCULAR VOLUME 104 FL (80-99); WHITE BLOOD COUNT 3.4 10^3/uL (4.3-11.0)
[2019-08-25 07:42] LABS: BASOPHILS % (AUTO) 1 % (0-10); EOSINOPHILS # (AUTO) 0.1 10^3/uL (0.0-0.3); EOSINOPHILS % (AUTO) 2 % (0-10); LYMPHOCYTES # (AUTO) 1.2 X 10^3 (1.0-4.0); LYMPHOCYTES % (AUTO) 34 % (12-44); MEAN PLATELET VOLUME 10.1 FL (7.4-10.4); MONOCYTES # (AUTO) 0.6 X 10^3 (0.0-1.0); MONOCYTES % (AUTO) 18 % (0-12); NEUTROPHILS # (AUTO) 1.5 X 10^3 (1.8-7.8); NEUTROPHILS % (AUTO) 44 % (42-75); PLATELET COUNT 68 10^3/uL (130-400)
== END 2019-09-28 | disposition home or self-care (01) ==
LOC: LAB FS 07:20
PROVIDERS: ATTEND Internal Medicine Hematology & Oncology
DX: Z01.89 Encounter for other specified special examinations (principal)
CPT/HCPCS: 36415; 80053; 85025; 86304

== ENCOUNTER 2019-09-15 07:05 | Outpatient (RCR) | payer BC ==
[2019-09-15 08:42] LABS: BASOPHILS # (AUTO) 0.1 10^3/uL (0.0-0.1); BASOPHILS % (AUTO) 1 % (0-10); EOSINOPHILS # (AUTO) 0.2 10^3/uL (0.0-0.3); EOSINOPHILS % (AUTO) 4 % (0-10); HEMATOCRIT 38 % (35-52); HEMOGLOBIN 11.9 G/DL (11.5-16.0); LYMPHOCYTES # (AUTO) 1.5 X 10^3 (1.0-4.0); LYMPHOCYTES % (AUTO) 27 % (12-44); MEAN CORPUSCULAR HEMOGLOBIN 33 PG (25-34); MEAN CORPUSCULAR HGB CONC 31 G/DL (32-36); MEAN CORPUSCULAR VOLUME 107 FL (80-99); MEAN PLATELET VOLUME 10.8 FL (7.4-10.4); MONOCYTES # (AUTO) 0.9 X 10^3 (0.0-1.0); MONOCYTES % (AUTO) 17 % (0-12); NEUTROPHILS # (AUTO) 2.9 X 10^3 (1.8-7.8); NEUTROPHILS % (AUTO) 51 % (42-75); PLATELET COUNT 132 10^3/uL (130-400); WHITE BLOOD COUNT 5.6 10^3/uL (4.3-11.0)
[2019-09-15 10:13] LABS: ALANINE AMINOTRANSFERASE 20 U/L (0-55); ALKALINE PHOSPHATASE 128 U/L (40-136); BILIRUBIN,TOTAL 0.7 MG/DL (0.1-1.0); BUN/CREATININE RATIO 10; CALCIUM 8.8 MG/DL (8.5-10.1); CARBON DIOXIDE 24 MMOL/L (21-32); CHLORIDE 106 MMOL/L (98-107); CREATININE SERUM 0.92 MG/DL (0.60-1.30); GFR ESTIMATED > 60; GLUCOSE 95 MG/DL (70-105); POTASSIUM 4.2 MMOL/L (3.6-5.0); SODIUM 143 MMOL/L (135-145); TOTAL PROTEIN 6.4 GM/DL (6.4-8.2)
[2019-09-15 10:14] LABS: ALBUMIN 3.1 GM/DL (3.2-4.5)
[2019-12-02] MEDS ORDERED: MULT-1136 PO (08:06)
[2019-12-02] MEDS ORDERED: CALC-823 PO (08:06)
[2019-12-02] MEDS ORDERED: ACET-93 PO (08:06)
[2019-12-02] MEDS ORDERED: LORA10TA7 PO (08:06)
[2019-12-02] MEDS ORDERED: CALC300T4 PO (08:06)
[2019-12-02] MEDS ORDERED: ASCO500C17 PO (08:06)
== END 2019-12-07 | disposition home or self-care (01) ==
LOC: LAB FS 07:05
PROVIDERS: ATTEND Internal Medicine Hematology & Oncology
DX: C48.8 Malignant neoplasm of overlapping sites of retroperitoneum and peritoneum (principal)
CPT/HCPCS: 36415; 80053; 85025; 86304

== ENCOUNTER → 2019-10-04 | Outpatient (CLI) | payer BC ==
--- NOTE | 2019-10-01 17:04 | NUR ---
PATIENT PICKED UP ORAL CONTRAST. HR
--- NOTE | 2019-10-04 08:57 | Diagnostic Imaging Report ---
PROCEDURE: CT chest, abdomen, and pelvis with and without contrast. TECHNIQUE: Precontrast images were obtained of the chest, abdomen, and pelvis. Multiple contiguous axial images were obtained through the chest, abdomen, and pelvis after administration of intravenous contrast. Auto Exposure Controls were utilized during the CT exam to meet ALARA standards for radiation dose reduction. INDICATION: Ovarian cancer, follow-up. Correlation is made with prior CT from 06/16/2019. CT CHEST: A right chest wall port is noted. No axillary lymphadenopathy is identified. No hilar or mediastinal lymphadenopathy is detected. Pericardial effusion is again noted. Overall size of pericardial effusion appears very similar to prior exam. No pleural fluid is identified. A pulmonary micronodule right middle lobe 4 mm compared with 5 mm on prior exam, image 37. 3 mm nodule lingula is stable. Tiny subpleural nodules in the lower lobes bilaterally appear stable at 2 to 3 mm. No new parenchymal abnormality is seen. Bony structures are unremarkable. IMPRESSION: Stable CT chest since 06/16/2019. No thoracic lymphadenopathy is seen. Pulmonary micronodules bilaterally are stable. Pericardial effusion is stable. CT abdomen and pelvis: Generalized low density throughout the liver is noted consistent with hepatic steatosis. No discrete liver mass is detected. The gallbladder is surgically absent. No biliary ductal dilatation is seen. Pancreas is unremarkable. Spleen remains enlarged 15.8 cm cephalocaudal. No adrenal mass is identified. Kidneys are unremarkable. Aorta is non-aneurysmal. Previously noted right iliac chain lymph node is stable at 8 mm. A right obturator node is stable at 8 mm. Left iliac lymph node short axis measurement of 6 mm, stable. No inguinal lymphadenopathy is seen. The uterus is unremarkable. Bladder is decompressed but otherwise unremarkable. There is a small amount of free fluid in the pelvis, similar to prior exam. There is some mild generalized stranding within the mesentery but no definite omental caking or peritoneal implants are seen. Bony structures are nonacute. Bowel loops are normal caliber. There is no obstruction. IMPRESSION: 1. Hepatic steatosis. 2. Splenomegaly. 3. Stable iliac chain and right obturator lymph nodes when compared with 06/16/2019. There is small amount of free fluid. No omental caking or evidence of peritoneal carcinomatosis is seen. Dictated by: Dictated on workstation # [id number]
== END ==
LOC: RAD FS 07:46
PROVIDERS: ATTEND Internal Medicine Hematology & Oncology
DX: K76.0 Fatty (change of) liver, not elsewhere classified (principal); C48.8 Malignant neoplasm of overlapping sites of retroperitoneum and peritoneum; R16.1 Splenomegaly, not elsewhere classified
CPT/HCPCS: 71270; 74178

== ENCOUNTER 2019-10-13 07:12 | Outpatient (RCR) | payer BC ==
[2019-09-22 07:44] LABS: HEMATOCRIT 34 % (35-52); HEMOGLOBIN 10.8 G/DL (11.5-16.0); MEAN CORPUSCULAR HEMOGLOBIN 33 PG (25-34); MEAN CORPUSCULAR HGB CONC 32 G/DL (32-36); MEAN CORPUSCULAR VOLUME 104 FL (80-99); PLATELET COUNT 68 10^3/uL (130-400); WHITE BLOOD COUNT 3.5 10^3/uL (4.3-11.0)
[2019-09-22 07:45] LABS: BASOPHILS % (AUTO) 1 % (0-10); EOSINOPHILS # (AUTO) 0.1 10^3/uL (0.0-0.3); EOSINOPHILS % (AUTO) 1 % (0-10); LYMPHOCYTES # (AUTO) 1.3 X 10^3 (1.0-4.0); LYMPHOCYTES % (AUTO) 36 % (12-44); MEAN PLATELET VOLUME 10.7 FL (7.4-10.4); MONOCYTES # (AUTO) 0.7 X 10^3 (0.0-1.0); MONOCYTES % (AUTO) 20 % (0-12); NEUTROPHILS # (AUTO) 1.4 X 10^3 (1.8-7.8); NEUTROPHILS % (AUTO) 41 % (42-75)
[2019-09-22 08:17] LABS: CHLORIDE 107 MMOL/L (98-107); POTASSIUM 3.8 MMOL/L (3.6-5.0); SODIUM 142 MMOL/L (135-145)
[2019-09-22 08:18] LABS: ALANINE AMINOTRANSFERASE 29 U/L (0-55); ALBUMIN 3.1 GM/DL (3.2-4.5); ALKALINE PHOSPHATASE 114 U/L (40-136); BILIRUBIN,TOTAL 0.7 MG/DL (0.1-1.0); BUN/CREATININE RATIO 12; CALCIUM 8.6 MG/DL (8.5-10.1); CARBON DIOXIDE 24 MMOL/L (21-32); GFR ESTIMATED > 60; GLUCOSE 100 MG/DL (70-105); TOTAL PROTEIN 6.3 GM/DL (6.4-8.2)
[2019-10-13 07:44] LABS: HEMATOCRIT 39 % (35-52); HEMOGLOBIN 12.2 G/DL (11.5-16.0); MEAN CORPUSCULAR HEMOGLOBIN 33 PG (25-34); MEAN CORPUSCULAR VOLUME 105 FL (80-99); WHITE BLOOD COUNT 6.2 10^3/uL (4.3-11.0)
[2019-10-13 07:45] LABS: MEAN CORPUSCULAR HGB CONC 31 G/DL (32-36)
[2019-10-13 07:46] LABS: LYMPHOCYTES % (AUTO) 23 % (12-44); MEAN PLATELET VOLUME 10.8 FL (7.4-10.4); MONOCYTES % (AUTO) 13 % (0-12); NEUTROPHILS % (AUTO) 60 % (42-75); PLATELET COUNT 142 10^3/uL (130-400)
[2019-10-13 07:47] LABS: BASOPHILS # (AUTO) 0.1 10^3/uL (0.0-0.1); BASOPHILS % (AUTO) 1 % (0-10); EOSINOPHILS # (AUTO) 0.2 10^3/uL (0.0-0.3); EOSINOPHILS % (AUTO) 4 % (0-10); LYMPHOCYTES # (AUTO) 1.4 X 10^3 (1.0-4.0); MONOCYTES # (AUTO) 0.8 X 10^3 (0.0-1.0); NEUTROPHILS # (AUTO) 3.7 X 10^3 (1.8-7.8)
[2019-12-02] MEDS ORDERED: CALC-823 PO (08:06)
[2019-12-02] MEDS ORDERED: MULT-1136 PO (08:06)
[2019-12-02] MEDS ORDERED: ASCO500C17 PO (08:06)
[2019-12-02] MEDS ORDERED: CALC300T4 PO (08:06)
[2019-12-02] MEDS ORDERED: ACET-93 PO (08:06)
[2019-12-02] MEDS ORDERED: LORA10TA7 PO (08:06)
== END 2019-12-21 | disposition home or self-care (01) ==
LOC: LAB FS 07:12
PROVIDERS: ATTEND Internal Medicine Hematology & Oncology
DX: Z01.89 Encounter for other specified special examinations (principal)
CPT/HCPCS: 36415; 80053; 85025; 86304

== ENCOUNTER 2019-11-17 07:03 | Outpatient (RCR) | payer BC ==
[2019-10-20 07:52] LABS: HEMATOCRIT 34 % (35-52); HEMOGLOBIN 10.7 G/DL (11.5-16.0); MEAN CORPUSCULAR HEMOGLOBIN 32 PG (25-34); MEAN CORPUSCULAR VOLUME 102 FL (80-99); WHITE BLOOD COUNT 3.4 10^3/uL (4.3-11.0)
[2019-10-20 07:53] LABS: BASOPHILS % (AUTO) 1 % (0-10); EOSINOPHILS % (AUTO) 2 % (0-10); MEAN CORPUSCULAR HGB CONC 32 G/DL (32-36); MEAN PLATELET VOLUME 9.7 FL (7.4-10.4); MONOCYTES % (AUTO) 21 % (0-12); NEUTROPHILS % (AUTO) 47 % (42-75); PLATELET COUNT 61 10^3/uL (130-400)
[2019-10-20 07:54] LABS: EOSINOPHILS # (AUTO) 0.1 10^3/uL (0.0-0.3); LYMPHOCYTES % (AUTO) 29 % (12-44); MONOCYTES # (AUTO) 0.7 X 10^3 (0.0-1.0); NEUTROPHILS # (AUTO) 1.6 X 10^3 (1.8-7.8)
[2019-10-20 08:08] LABS: SODIUM 139 MMOL/L (135-145)
[2019-10-20 08:09] LABS: ALANINE AMINOTRANSFERASE 30 U/L (0-55); ALKALINE PHOSPHATASE 126 U/L (40-136); BILIRUBIN,TOTAL 0.7 MG/DL (0.1-1.0); BUN/CREATININE RATIO 13; CALCIUM 8.6 MG/DL (8.5-10.1); CARBON DIOXIDE 22 MMOL/L (21-32); CHLORIDE 106 MMOL/L (98-107); CREATININE SERUM 0.88 MG/DL (0.60-1.30); GFR ESTIMATED > 60; GLUCOSE 101 MG/DL (70-105); POTASSIUM 3.8 MMOL/L (3.6-5.0); TOTAL PROTEIN 6.3 GM/DL (6.4-8.2)
[2019-11-10 07:37] LABS: HEMATOCRIT 36 % (35-52); HEMOGLOBIN 11.6 G/DL (11.5-16.0); LYMPHOCYTES % (AUTO) 26 % (12-44); MEAN CORPUSCULAR HEMOGLOBIN 33 PG (25-34); MEAN CORPUSCULAR HGB CONC 32 G/DL (32-36); MEAN CORPUSCULAR VOLUME 104 FL (80-99); MEAN PLATELET VOLUME 10.8 FL (7.4-10.4); NEUTROPHILS % (AUTO) 54 % (42-75); PLATELET COUNT 119 10^3/uL (130-400); WHITE BLOOD COUNT 5.1 10^3/uL (4.3-11.0)
[2019-11-10 07:38] LABS: BASOPHILS % (AUTO) 1 % (0-10); EOSINOPHILS # (AUTO) 0.2 10^3/uL (0.0-0.3); EOSINOPHILS % (AUTO) 5 % (0-10); LYMPHOCYTES # (AUTO) 1.3 X 10^3 (1.0-4.0); MONOCYTES # (AUTO) 0.7 X 10^3 (0.0-1.0); MONOCYTES % (AUTO) 14 % (0-12); NEUTROPHILS # (AUTO) 2.8 X 10^3 (1.8-7.8)
[2019-11-17 07:30] LABS: HEMATOCRIT 35 % (35-52); HEMOGLOBIN 11.3 G/DL (11.5-16.0); MEAN CORPUSCULAR HEMOGLOBIN 33 PG (25-34)
[2019-11-17 07:31] LABS: BASOPHILS % (AUTO) 1 % (0-10); EOSINOPHILS % (AUTO) 2 % (0-10); LYMPHOCYTES # (AUTO) 1.2 X 10^3 (1.0-4.0); LYMPHOCYTES % (AUTO) 30 % (12-44); MEAN CORPUSCULAR HGB CONC 33 G/DL (32-36); MEAN CORPUSCULAR VOLUME 102 FL (80-99); MONOCYTES # (AUTO) 0.8 X 10^3 (0.0-1.0); MONOCYTES % (AUTO) 21 % (0-12); NEUTROPHILS # (AUTO) 1.8 X 10^3 (1.8-7.8); NEUTROPHILS % (AUTO) 46 % (42-75); PLATELET COUNT 65 10^3/uL (130-400)
[2019-11-17 07:32] LABS: EOSINOPHILS # (AUTO) 0.1 10^3/uL (0.0-0.3)
[2019-12-02] MEDS ORDERED: LORA10TA7 PO (08:06)
[2019-12-02] MEDS ORDERED: ASCO500C17 PO (08:06)
[2019-12-02] MEDS ORDERED: MULT-1136 PO (08:06)
[2019-12-02] MEDS ORDERED: CALC300T4 PO (08:06)
[2019-12-02] MEDS ORDERED: ACET-93 PO (08:06)
[2019-12-02] MEDS ORDERED: CALC-823 PO (08:06)
== END 2020-01-18 | disposition home or self-care (01) ==
LOC: LAB FS 07:03
PROVIDERS: ATTEND Internal Medicine Hematology & Oncology
DX: Z01.89 Encounter for other specified special examinations (principal)
CPT/HCPCS: 36415; 80053; 85025; 86304

== ENCOUNTER 2019-12-02 08:00 | Day surgery (SDC) | payer BC ==
[~2019-12-02] VITALS: Ht 175.3 cm; Wt 127.7 kg
[2019-12-02] VITALS (10 sets, daily range): BP systolic 109–156; BP diastolic 60–82
[~2019-12-02 08:00] MED LIST changes: -BARIUM SUSPENSION 2.1% (VANILLA SILQ) 450 ML PO ONE; -CATHETER FLUSH 10 ML SYR IV PRN; -HOLD METFORMIN - RECEIVED CONTRAST 20 ML VIAL IV SCH; -IOHEXOL 350 MG/ML 100 ML (OMNIPAQUE 350) VIAL IV ONE; +LIDOCAINE 2% VISCOUS 15 ML UDC ONE; -NS 100 ML (IVPB) BAG IV ONE; +NS IV 1000 ML 1,000 ML IV SCH; +NS IV 1000 ML 1,000 ML ONE
[2019-12-02] MEDS ORDERED: ASCO500C17 PO (08:06)
[2019-12-02] MEDS ORDERED: CALC300T4 PO (08:06)
[2019-12-02] MEDS ORDERED: MULT-1136 PO (08:06)
[2019-12-02] MEDS ORDERED: CALC-823 PO (08:06)
[2019-12-02] MEDS ORDERED: ACET-93 PO (08:06)
[2019-12-02] MEDS ORDERED: LORA10TA7 PO (08:06)
[2019-12-02] MEDS ORDERED: proPOfol 200 MG/20 ML (DIPRIVAN) VIAL IV ONE ×2 (08:23→09:01)
[2019-12-02] MEDS ORDERED: MIDAZOLAM 2 MG/2 ML (VERSED) VIAL ONE (08:23)
[2019-12-02] MEDS ORDERED: LIDOCAINE 2% VISCOUS 15 ML UDC PO ONE (08:48)
--- NOTE | 2019-12-02 12:52 | Anesthesia-General Post-Op ---
MAC Patient Condition Mental Status/LOC: Same as Preop Cardiovascular: Satisfactory Nausea/Vomiting: Absent Respiratory: Satisfactory Pain: Controlled Complications: Absent Post Op Complications Complications None Follow Up Care/Instructions Patient Instructions None needed. Anesthesiology Discharge Order Discharge Order Patient is doing well, no complaints, stable vital signs, no apparent adverse anesthesia problems. No complications reported per nursing. SHANNEN UNDERWOOD CRNA Dec 02, 2019 12:52
== END 2019-12-02 10:20 | disposition home or self-care (01) ==
LOC: CATH 08:00
PROVIDERS: ATTEND Internal Medicine Interventional Cardiology
DX: I34.0 Nonrheumatic mitral (valve) insufficiency (principal); R94.39 Abnormal result of other cardiovascular function study; E66.01 Morbid (severe) obesity due to excess calories; Z68.41 Body mass index [BMI] 40.0-44.9, adult; Z79.899 Other long term (current) drug therapy; Z88.5 Allergy status to narcotic agent; Z92.21 Personal history of antineoplastic chemotherapy; Z85.43 Personal history of malignant neoplasm of ovary; Z80.9 Family history of malignant neoplasm, unspecified
CPT/HCPCS: 93312; 93320; 93325

== ENCOUNTER 2019-12-08 07:06 | Outpatient (RCR) | payer BC ==
[~2019-12-08 07:06] MED LIST changes: +ACET-93 PO; +ASCO500C17 PO; +CALC-823 PO; +CALC300T4 PO; -LIDOCAINE 2% VISCOUS 15 ML UDC ONE; +LORA10TA7 PO; +MULT-1136 PO; -NS IV 1000 ML 1,000 ML IV SCH; -NS IV 1000 ML 1,000 ML ONE
[2019-12-08 08:25] LABS: HEMATOCRIT 35 % (35-52); HEMOGLOBIN 11.3 G/DL (11.5-16.0); LYMPHOCYTES % (AUTO) 25 % (12-44); MEAN CORPUSCULAR HEMOGLOBIN 34 PG (25-34); MEAN CORPUSCULAR HGB CONC 32 G/DL (32-36); MEAN CORPUSCULAR VOLUME 104 FL (80-99); MEAN PLATELET VOLUME 11.1 FL (7.4-10.4); MONOCYTES % (AUTO) 13 % (0-12); NEUTROPHILS % (AUTO) 57 % (42-75); PLATELET COUNT 113 10^3/uL (130-400); WHITE BLOOD COUNT 4.9 10^3/uL (4.3-11.0)
[2019-12-08 08:26] LABS: BASOPHILS % (AUTO) 1 % (0-10); EOSINOPHILS # (AUTO) 0.2 10^3/uL (0.0-0.3); EOSINOPHILS % (AUTO) 4 % (0-10); LYMPHOCYTES # (AUTO) 1.2 X 10^3 (1.0-4.0); MONOCYTES # (AUTO) 0.7 X 10^3 (0.0-1.0); NEUTROPHILS # (AUTO) 2.8 X 10^3 (1.8-7.8)
[2019-12-08 08:41] LABS: POTASSIUM 3.8 MMOL/L (3.6-5.0); SODIUM 142 MMOL/L (135-145)
[2019-12-08 08:42] LABS: ALANINE AMINOTRANSFERASE 18 U/L (0-55); ALBUMIN 2.9 GM/DL (3.2-4.5); ALKALINE PHOSPHATASE 128 U/L (40-136); BILIRUBIN,TOTAL 0.7 MG/DL (0.1-1.0); BUN/CREATININE RATIO 13; CALCIUM 8.4 MG/DL (8.5-10.1); CARBON DIOXIDE 24 MMOL/L (21-32); CHLORIDE 107 MMOL/L (98-107); CREATININE SERUM 0.86 MG/DL (0.60-1.30); GFR ESTIMATED > 60; GLUCOSE 93 MG/DL (70-105); TOTAL PROTEIN 6.1 GM/DL (6.4-8.2)
== END 2020-03-07 | disposition home or self-care (01) ==
LOC: LAB FS 07:06
PROVIDERS: ATTEND Internal Medicine Hematology & Oncology
DX: C48.8 Malignant neoplasm of overlapping sites of retroperitoneum and peritoneum (principal)
CPT/HCPCS: 36415; 80053; 85025; 86304

== ENCOUNTER 2019-12-15 07:04 | Outpatient (RCR) | payer BC ==
[2019-12-15 07:32] LABS: HEMATOCRIT 35 % (35-52); MEAN CORPUSCULAR HEMOGLOBIN 34 PG (25-34); MEAN CORPUSCULAR HGB CONC 32 G/DL (32-36); MEAN CORPUSCULAR VOLUME 105 FL (80-99); MEAN PLATELET VOLUME 11.2 FL (7.4-10.4); PLATELET COUNT 66 10^3/uL (130-400); WHITE BLOOD COUNT 3.6 10^3/uL (4.3-11.0)
[2019-12-15 07:33] LABS: BASOPHILS % (AUTO) 1 % (0-10); EOSINOPHILS % (AUTO) 2 % (0-10); LYMPHOCYTES % (AUTO) 28 % (12-44); MONOCYTES % (AUTO) 24 % (0-12); NEUTROPHILS # (AUTO) 1.7 X 10^3 (1.8-7.8); NEUTROPHILS % (AUTO) 46 % (42-75)
[2019-12-15 07:34] LABS: EOSINOPHILS # (AUTO) 0.1 10^3/uL (0.0-0.3); MONOCYTES # (AUTO) 0.9 X 10^3 (0.0-1.0)
== END 2020-03-14 | disposition home or self-care (01) ==
LOC: LAB FS 07:04
PROVIDERS: ATTEND Internal Medicine Hematology & Oncology
DX: Z01.89 Encounter for other specified special examinations (principal)
CPT/HCPCS: 36415; 85025

== ENCOUNTER → 2020-01-03 | Outpatient (CLI) | payer BC ==
[~2020-01-03] MED LIST changes: +BARIUM SUSPENSION 2.1% (VANILLA SILQ) 450 ML PO ONE; +HOLD METFORMIN - RECEIVED CONTRAST 20 ML VIAL IV SCH; +IOHEXOL 350 MG/ML 100 ML (OMNIPAQUE 350) VIAL IV ONE; +NS 100 ML (IVPB) BAG IV ONE
[2020-01-03] MEDS: CATHETER FLUSH 10 ML SYR IV PRN ×2 (08:18→08:20)
--- NOTE | 2020-01-03 09:04 | Diagnostic Imaging Report ---
EXAMINATION: CT chest, abdomen, and pelvis with and without contrast. TECHNIQUE: Precontrast images were obtained of the chest, abdomen, and pelvis. Multiple contiguous axial images were obtained through the chest, abdomen, and pelvis after administration of intravenous contrast. Auto Exposure Controls were utilized during the CT exam to meet ALARA standards for radiation dose reduction. HISTORY: Ovarian cancer COMPARISON: 10/04/2019 FINDINGS: There is no edema or pneumonia. No pleural effusion. No pneumothorax. No suspicious nodules. There is a stable small juxta fissural lymph node in the right lung. Right port catheter tip terminates in the superior vena cava. There is no axillary or supraclavicular lymphadenopathy. There is no mediastinal lymphadenopathy. Heart size is normal. There are no coronary artery calcifications. There is a stable small pericardial effusion. No pericardial thickening or enhancement is seen. Aorta is normal in caliber. The liver is normal without focal lesion. There is no biliary ductal dilation. Gallbladder is surgically absent. Pancreas is normal. Spleen is normal. Adrenal glands are normal. The kidneys are normal. There is no hydronephrosis. Urinary bladder is normal. Visualized bowel is normal in caliber without obstruction or inflammation. There is new small volume ascites. No peritoneal thickening or enhancement is seen. No abdominal or pelvic lymphadenopathy. Aorta is normal in caliber without aneurysm. There are no suspicious osseus lesions. IMPRESSION: 1. While there is no peritoneal thickening, enhancement or nodularity seen to indicate peritoneal disease, there is new small volume ascites and a stable small pericardial effusion. Dictated by: Dictated on workstation # [id number]
== END ==
LOC: RAD FS 07:49
PROVIDERS: ATTEND Internal Medicine Hematology & Oncology
DX: C48.8 Malignant neoplasm of overlapping sites of retroperitoneum and peritoneum (principal); Z85.43 Personal history of malignant neoplasm of ovary
CPT/HCPCS: 71270; 74178

== ENCOUNTER → 2020-01-11 | Outpatient (CLI) | payer BC ==
[~2020-01-11] MED LIST changes: -BARIUM SUSPENSION 2.1% (VANILLA SILQ) 450 ML PO ONE; -HOLD METFORMIN - RECEIVED CONTRAST 20 ML VIAL IV SCH; -IOHEXOL 350 MG/ML 100 ML (OMNIPAQUE 350) VIAL IV ONE; -NS 100 ML (IVPB) BAG IV ONE
--- NOTE | 2020-01-11 11:47 | Diagnostic Imaging Report ---
INDICATION: Peritoneal cancer, restaging. TECHNIQUE: The serum blood glucose level at the time of injection was 106 mg/dL. The patient was administered 16.0 mCi of F-18 FDG intravenously in the right antecubital location and PET imaging was performed from the top of the skull to the mid thighs. A noncontrast CT was performed for attenuation correction and anatomic correlation. COMPARISON: No prior imaging is available for comparison. FINDINGS: The visualized intracranial structures demonstrate symmetric activity. The soft tissues of the neck are unremarkable. No mediastinal or hilar hypermetabolism is identified. There is a tiny 5 mm nodule in the right middle lobe, indeterminate. Note is made of a moderate-sized pericardial effusion. No pleural effusion is identified. Imaging through the abdomen and pelvis does show abdominal and pelvic ascites. The spleen is enlarged. No suspicious hypermetabolic foci are seen. IMPRESSION: 1. Moderate-sized pericardial effusion. 2. Abdominal and pelvic ascites. 3. Splenomegaly. 4. No suspicious hypermetabolic foci are detected. 5. There is a 5 mm indeterminate right middle lobe pulmonary nodule. Dictated by: Dictated on workstation # [id number]
== END ==
LOC: RAD 09:45
PROVIDERS: ATTEND Internal Medicine Hematology & Oncology
DX: C48.2 Malignant neoplasm of peritoneum, unspecified (principal); I31.3 Pericardial effusion (noninflammatory); R18.8 Other ascites; R16.1 Splenomegaly, not elsewhere classified; R91.1 Solitary pulmonary nodule
CPT/HCPCS: 78815; A9552

== ENCOUNTER 2020-01-31 17:27 | Outpatient (RCR) | payer BC ==
--- NOTE | 2019-12-30 16:49 | NUR ---
SPOKE WITH PATIENT ABOUT PICKING UP ORAL CONTRAST. SHE WILL SEND HER SATURDAY 12/30 TO PICK IT UP FOR HER. HR @[id number]
--- NOTE | 2019-12-31 09:47 | NUR ---
PT'S PICKED UP ORAL CONTRAST. HR @ [id number]
[2020-01-05 07:22] LABS: BASOPHILS % (AUTO) 1 % (0-10); EOSINOPHILS # (AUTO) 0.2 10^3/uL (0.0-0.3); EOSINOPHILS % (AUTO) 4 % (0-10); HEMATOCRIT 36 % (35-52); HEMOGLOBIN 11.5 G/DL (11.5-16.0); LYMPHOCYTES # (AUTO) 1.2 X 10^3 (1.0-4.0); LYMPHOCYTES % (AUTO) 23 % (12-44); MEAN CORPUSCULAR HEMOGLOBIN 34 PG (25-34); MEAN CORPUSCULAR HGB CONC 32 G/DL (32-36); MEAN CORPUSCULAR VOLUME 105 FL (80-99); MEAN PLATELET VOLUME 11.1 FL (7.4-10.4); MONOCYTES # (AUTO) 0.8 X 10^3 (0.0-1.0); MONOCYTES % (AUTO) 15 % (0-12); NEUTROPHILS # (AUTO) 2.9 X 10^3 (1.8-7.8); NEUTROPHILS % (AUTO) 57 % (42-75); PLATELET COUNT 120 10^3/uL (130-400); WHITE BLOOD COUNT 5.1 10^3/uL (4.3-11.0)
[2020-01-05 07:56] LABS: CALCIUM 8.5 MG/DL (8.5-10.1); CREATININE SERUM 0.94 MG/DL (0.60-1.30); POTASSIUM 3.5 MMOL/L (3.6-5.0); TOTAL PROTEIN 6.2 GM/DL (6.4-8.2)
[2020-01-17 08:39] LABS: HEMATOCRIT 34 % (35-52); HEMOGLOBIN 10.8 G/DL (11.5-16.0); MEAN CORPUSCULAR HEMOGLOBIN 34 PG (25-34)
[2020-01-17 08:40] LABS: BASOPHILS % (AUTO) 0 % (0-10); EOSINOPHILS # (AUTO) 0.1 10^3/uL (0.0-0.3); EOSINOPHILS % (AUTO) 2 % (0-10); LYMPHOCYTES # (AUTO) 1.1 X 10^3 (1.0-4.0); LYMPHOCYTES % (AUTO) 18 % (12-44); MEAN CORPUSCULAR HGB CONC 32 G/DL (32-36); MEAN CORPUSCULAR VOLUME 107 FL (80-99); MEAN PLATELET VOLUME 12.8 FL (7.4-10.4); MONOCYTES # (AUTO) 0.7 X 10^3 (0.0-1.0); MONOCYTES % (AUTO) 12 % (0-12); NEUTROPHILS % (AUTO) 67 % (42-75); PLATELET COUNT 88 10^3/uL (130-400)
[2020-01-17 08:41] LABS: ALANINE AMINOTRANSFERASE 29 U/L (0-55); ALBUMIN 2.9 GM/DL (3.2-4.5); ALKALINE PHOSPHATASE 122 U/L (40-136); BILIRUBIN,TOTAL 0.6 MG/DL (0.1-1.0); BUN/CREATININE RATIO 9; CARBON DIOXIDE 26 MMOL/L (21-32); CHLORIDE 108 MMOL/L (98-107); CREATININE SERUM 0.91 MG/DL (0.60-1.30); GFR ESTIMATED > 60; GLUCOSE 105 MG/DL (70-105); POTASSIUM 3.7 MMOL/L (3.6-5.0); SODIUM 142 MMOL/L (135-145); TOTAL PROTEIN 5.9 GM/DL (6.4-8.2)
[2020-03-26] MEDS ORDERED: HYDR25TA4 (17:53)
[2020-03-26] MEDS ORDERED: METO5TAB6 (17:53)
[2020-03-26] MEDS ORDERED: POTA20TA15 (17:53)
== END 2020-04-04 | disposition home or self-care (01) ==
LOC: LAB FS 17:27
PROVIDERS: ATTEND Internal Medicine Hematology & Oncology
DX: Z01.89 Encounter for other specified special examinations (principal)
CPT/HCPCS: 36415; 80053; 83615; 85025; 86304

== ENCOUNTER → 2020-02-03 | Outpatient (CLI) | payer BC ==
[2020-02-03 10:13] LABS: BASOPHILS % (AUTO) 0 % (0-10); EOSINOPHILS # (AUTO) 0.2 10^3/uL (0.0-0.3); EOSINOPHILS % (AUTO) 4 % (0-10); HEMATOCRIT 37 % (35-52); HEMOGLOBIN 11.8 G/DL (11.5-16.0); LYMPHOCYTES # (AUTO) 1.4 X 10^3 (1.0-4.0); LYMPHOCYTES % (AUTO) 26 % (12-44); MEAN CORPUSCULAR HEMOGLOBIN 33 PG (25-34); MEAN CORPUSCULAR HGB CONC 32 G/DL (32-36); MEAN CORPUSCULAR VOLUME 104 FL (80-99); MEAN PLATELET VOLUME 11.5 FL (7.4-10.4); MONOCYTES # (AUTO) 0.5 X 10^3 (0.0-1.0); MONOCYTES % (AUTO) 10 % (0-12); NEUTROPHILS # (AUTO) 3.1 X 10^3 (1.8-7.8); NEUTROPHILS % (AUTO) 59 % (42-75); PLATELET COUNT 79 10^3/uL (130-400); WHITE BLOOD COUNT 5.2 10^3/uL (4.3-11.0)
[2020-02-03 10:16] LABS: BILIRUBIN,TOTAL 0.9 MG/DL (0.1-1.0); CALCIUM 8.7 MG/DL (8.5-10.1); CREATININE SERUM 0.96 MG/DL (0.60-1.30); POTASSIUM 3.6 MMOL/L (3.6-5.0); TOTAL PROTEIN 6.6 GM/DL (6.4-8.2)
== END ==
LOC: LAB FS 07:13
PROVIDERS: ATTEND Internal Medicine Hematology & Oncology
DX: C48.8 Malignant neoplasm of overlapping sites of retroperitoneum and peritoneum (principal)
CPT/HCPCS: 36415; 80053; 83615; 85025; 86304

== ENCOUNTER 2020-03-08 12:05 | Outpatient (RCR) | payer BC ==
[2020-02-11 13:27] LABS: BASOPHILS % (AUTO) 0 % (0-10); EOSINOPHILS # (AUTO) 0.2 10^3/uL (0.0-0.3); EOSINOPHILS % (AUTO) 4 % (0-10); HEMATOCRIT 35 % (35-52); HEMOGLOBIN 11.2 G/DL (11.5-16.0); LYMPHOCYTES # (AUTO) 1.2 X 10^3 (1.0-4.0); LYMPHOCYTES % (AUTO) 22 % (12-44); MEAN CORPUSCULAR HEMOGLOBIN 33 PG (25-34); MEAN CORPUSCULAR HGB CONC 32 G/DL (32-36); MEAN CORPUSCULAR VOLUME 103 FL (80-99); MEAN PLATELET VOLUME 10.4 FL (7.4-10.4); MONOCYTES # (AUTO) 0.1 X 10^3 (0.0-1.0); MONOCYTES % (AUTO) 2 % (0-12); NEUTROPHILS # (AUTO) 3.9 X 10^3 (1.8-7.8); NEUTROPHILS % (AUTO) 72 % (42-75); PLATELET COUNT 72 10^3/uL (130-400); WHITE BLOOD COUNT 5.4 10^3/uL (4.3-11.0)
[2020-02-16 09:24] LABS: HEMATOCRIT 32 % (35-52); HEMOGLOBIN 10.5 G/DL (11.5-16.0); MEAN CORPUSCULAR HEMOGLOBIN 33 PG (25-34); MEAN CORPUSCULAR HGB CONC 33 G/DL (32-36); MEAN CORPUSCULAR VOLUME 102 FL (80-99); WHITE BLOOD COUNT 3.7 10^3/uL (4.3-11.0)
[2020-02-16 09:25] LABS: BASOPHILS % (AUTO) 1 % (0-10); EOSINOPHILS # (AUTO) 0.1 10^3/uL (0.0-0.3); EOSINOPHILS % (AUTO) 3 % (0-10); LYMPHOCYTES # (AUTO) 0.7 X 10^3 (1.0-4.0); LYMPHOCYTES % (AUTO) 20 % (12-44); MEAN PLATELET VOLUME 12.3 FL (7.4-10.4); MONOCYTES # (AUTO) 0.1 X 10^3 (0.0-1.0); MONOCYTES % (AUTO) 3 % (0-12); NEUTROPHILS # (AUTO) 2.7 X 10^3 (1.8-7.8); NEUTROPHILS % (AUTO) 73 % (42-75); PLATELET COUNT 50 10^3/uL (130-400)
[2020-02-23 11:31] LABS: HEMATOCRIT 30 % (35-52); HEMOGLOBIN 10.1 G/DL (11.5-16.0); MEAN CORPUSCULAR HEMOGLOBIN 34 PG (25-34); MEAN CORPUSCULAR VOLUME 101 FL (80-99); WHITE BLOOD COUNT 2.2 10^3/uL (4.3-11.0)
[2020-02-23 11:32] LABS: BASOPHILS % (AUTO) 1 % (0-10); EOSINOPHILS % (AUTO) 2 % (0-10); LYMPHOCYTES # (AUTO) 0.9 X 10^3 (1.0-4.0); LYMPHOCYTES % (AUTO) 40 % (12-44); MEAN CORPUSCULAR HGB CONC 33 G/DL (32-36); MONOCYTES # (AUTO) 0.3 X 10^3 (0.0-1.0); MONOCYTES % (AUTO) 13 % (0-12); NEUTROPHILS % (AUTO) 44 % (42-75); PLATELET COUNT 97 10^3/uL (130-400)
[2020-03-08 12:31] LABS: BASOPHILS % (AUTO) 1 % (0-10); EOSINOPHILS % (AUTO) 2 % (0-10); HEMATOCRIT 36 % (35-52); HEMOGLOBIN 11.7 G/DL (11.5-16.0); LYMPHOCYTES % (AUTO) 23 % (12-44); MEAN CORPUSCULAR HEMOGLOBIN 33 PG (25-34); MEAN CORPUSCULAR HGB CONC 33 G/DL (32-36); MEAN CORPUSCULAR VOLUME 101 FL (80-99); MEAN PLATELET VOLUME 12.2 FL (7.4-10.4); MONOCYTES % (AUTO) 4 % (0-12); NEUTROPHILS % (AUTO) 70 % (42-75); PLATELET COUNT 76 10^3/uL (130-400); WHITE BLOOD COUNT 4.4 10^3/uL (4.3-11.0)
[2020-03-08 12:32] LABS: EOSINOPHILS # (AUTO) 0.1 10^3/uL (0.0-0.3); MONOCYTES # (AUTO) 0.2 X 10^3 (0.0-1.0); NEUTROPHILS # (AUTO) 3.1 X 10^3 (1.8-7.8)
[2020-03-26] MEDS ORDERED: METO5TAB6 (17:53)
[2020-03-26] MEDS ORDERED: HYDR25TA4 (17:53)
[2020-03-26] MEDS ORDERED: POTA20TA15 (17:53)
== END 2020-05-11 | disposition home or self-care (01) ==
LOC: LAB FS 12:05
PROVIDERS: ATTEND Internal Medicine Hematology & Oncology
DX: C48.8 Malignant neoplasm of overlapping sites of retroperitoneum and peritoneum (principal)
CPT/HCPCS: 36415; 85025; 86304

== ENCOUNTER 2020-03-15 13:14 | Emergency (ER) | payer BC ==
[~2020-03-15] VITALS: Ht 177 cm; Wt 125.0 kg
[2020-03-15 13:32] VITALS: BP 118/85
--- NOTE | 2020-03-15 13:56 | ED EENT ---
History of Present Illness General Chief Complaint: Oral/Throat Problems Stated Complaint: DIFFICULTY SWALLOWING; DIARRHEA Nursing Triage Note: PT REPORTS SHE HAS HAD A SORE THROAT SINCE ABOUT . SHE REPORTS IT HURTS TO SWALLOW. Source: patient Exam Limitations: no limitations History of Present Illness Date Seen by Provider: Mar 15, 2020 Time Seen by Provider: 13:45 Initial Comments 63-year-old female presents to the ER by private vehicle with complaint of sore throat for the past 5 days. Patient is concerned that maybe her chemotherapy me dication is causing her sore throat (that she's been on for the last 8 weeks), however it has not cause sore throat before. Patient denies any fever or chills, any nasal congestion, cough or postnasal drip. Denies any recent illness. Allergies and Home Medications Allergies Coded Allergies: tramadol (Unverified Allergy, Unknown, 05/14/18) PER WAC JOBY ORELLANA Home Medications Acetaminophen 500 Mg Tablet, 500 MG PO Q6H PRN for PAIN-MILD (1-4), (Reported) Ascorbic Acid 500 Mg Capsule, 500 MG PO DAILY, (Reported) Calcium Carbonate 300 Mg Tab.chew, 300 MG PO TID PRN for STOMACH UPSET, (Reported) Calcium Carbonate 500 Mg Tablet, 500 MG PO DAILY, (Reported) Loratadine 10 Mg Tablet, 10 MG PO DAILY, (Reported) Multivitamin 1 Each Tablet, 1 EACH PO DAILY, (Reported) Patient Home Medication List Home Medication List Reviewed: Yes Review of Systems Review of Systems Constitutional: No chills, No dizziness, No fever, No malaise, No weakness Eyes: No Symptoms Reported Ears: No Symptoms Reported Nose: no symptoms reported; denies congestion, denies epistaxis, denies pain Throat: pain; denies swelling, denies discharge, denies neck stiffness, denies hoarse, denies aphonia, denies muffled, denies painful swallowing, denies difficulty with fluids, denies previous injury Respiratory: No cough, No short of breath Cardiovascular: No chest pain, No edema Gastrointestinal: No loss of appetite, No nausea, No vomiting Past [id number]-Oftvrw Hx Past Med/Social Hx: Reviewed Nursing Past Med/Soc Hx Patient Social History Alcohol Use: Denies Use Recreational Drug Use: No Smoking Status: Never a Smoker 2nd Hand Smoke Exposure: No Recent Foreign Travel: No Contact w/Someone Who Travel: No Recent Infectious Disease Expo: No Recent Hopitalizations: No Physical Abuse: No Sexual Abuse: No Mistreated: No Fear: No Past Medical History Surgeries: Yes (PORT) Gallbladder, Tubal Ligation Respiratory: No Currently Using CPAP: No Currently Using BIPAP: No Neurological: No Genitourinary: No Gastrointestinal: Yes Gastroesophageal Reflux Endocrine: No Cancer: Yes Ovarian Did You Recieve Any Treatments: Yes What Type of Treatment Did You: Chemotherapy Blood Disorders: No Adverse Reaction/Blood Tranf: No Physical Exam Vital Signs Vital Signs - First Documented 03/15/20 13:32 Temp 36.8 Pulse 93 Resp 18 B/P (MAP) 118/85 (96) Pulse Ox 100 O2 Delivery Room Air Height, Weight, BMI Height: 5'9.00" Weight: 27lbs. 0.0oz. [id number]; 39.00 BMI Method: General Appearance: WD/WN, no apparent distress Eyes: bilateral eye normal inspection, bilateral eye PERRL, bilateral eye EOMI Ears: bilateral ear auricle normal, bilateral ear canal normal, bilateral ear TM normal Nose: No discharge, No dried blood, No sinus tenderness Mouth/Throat: normal mouth inspection, pharynx normal; No excessive drooling, No mandibular swelling, No maxillary swelling, No pharynx swelling, No pharynx tenderness, No tongue swollen, No tonsillar exudate, No tonsillar swelling, No trismus, No uvula swelling, No voice changes Neck: non-tender, full range of motion, supple; No lymphadenopathy (R), No lymphadenopathy (L) Neurologic/Psychiatric: alert, normal mood/affect, oriented x 3 Skin: normal color, warm/dry Progress/Results/Core Measures Results/Orders Lab Results Laboratory Tests Test 03/15/20 13:30 Range/Units Group A Streptococcus Screen NEGATIVE NEGATIVE My Orders Orders - RASHMI ESPINOSA DO Rapid Strep A Screen (03/15/20 13:29) Vital Signs/I&O 03/15/20 13:32 Temp 36.8 Pulse 93 Resp 18 B/P (MAP) 118/85 (96) Pulse Ox 100 O2 Delivery Room Air Blood Pressure Mean: 96 Departure Impression Primary Impression: Pharyngitis Qualified Codes: J02.9 - Acute pharyngitis, unspecified Disposition: HOME, SELF-CARE Condition: Stable Departure-Patient Inst. Referrals: KEZIA BOND MD (PCP/Family) Primary Care Physician Patient Instructions: Sore Throat, Adult (DC) Add. Discharge Instructions: Try the following for your sore throat: warm salt water gargle. tylenol or motrin gargle with maalox and spit it out All discharge instructions reviewed with patient and/or family. Voiced understanding. RASHMI ESPINOSA DO Mar 15, 2020 13:56
== END 2020-03-15 13:58 | disposition home or self-care (01) ==
LOC: EDUNIT# 13:14 → ER FS 13:17
DX: J02.9 Acute pharyngitis, unspecified (principal); Z85.43 Personal history of malignant neoplasm of ovary; Z88.5 Allergy status to narcotic agent
CPT/HCPCS: 87430

== ENCOUNTER → 2020-03-15 | Outpatient (CLI) | payer BC ==
[2020-03-15 14:36] LABS: ALBUMIN 2.7 GM/DL (3.2-4.5); BILIRUBIN,TOTAL 3.3 MG/DL (0.1-1.0); CALCIUM 7.5 MG/DL (8.5-10.1); CREATININE SERUM 1.15 MG/DL (0.60-1.30); TOTAL PROTEIN 5.9 GM/DL (6.4-8.2)
[2020-03-15 14:39] LABS: HEMOGLOBIN 9.6 G/DL (11.5-16.0); MEAN CORPUSCULAR HEMOGLOBIN 33 PG (25-34); WHITE BLOOD COUNT 1.9 10^3/uL (4.3-11.0)
[2020-03-15 14:40] LABS: HEMATOCRIT 29 % (35-52); LYMPHOCYTES % (AUTO) 22 % (12-44); MEAN CORPUSCULAR HGB CONC 33 G/DL (32-36); MEAN CORPUSCULAR VOLUME 100 FL (80-99); NEUTROPHILS % (AUTO) 61 % (42-75); PLATELET COUNT 29 10^3/uL (130-400)
[2020-03-15 14:41] LABS: BASOPHILS % (AUTO) 1 % (0-10); EOSINOPHILS % (AUTO) 2 % (0-10); LYMPHOCYTES # (AUTO) 0.4 X 10^3 (1.0-4.0); MONOCYTES # (AUTO) 0.1 X 10^3 (0.0-1.0); MONOCYTES % (AUTO) 4 % (0-12); NEUTROPHILS # (AUTO) 1.2 X 10^3 (1.8-7.8)
== END ==
LOC: LAB FS 14:06
PROVIDERS: ATTEND Internal Medicine Hematology & Oncology
DX: C48.8 Malignant neoplasm of overlapping sites of retroperitoneum and peritoneum (principal)
CPT/HCPCS: 36415; 80053; 85025

== ENCOUNTER 2020-03-26 15:40 | Emergency (ER) | payer BC ==
[~2020-03-26] VITALS: Ht 175.2 cm; Wt 130.2 kg
--- NOTE | 2020-03-26 15:59 | ED Lower Extremity ---
General Chief Complaint: Lower Extremity Stated Complaint: RT KNEE INJ Source: patient, EMS History of Present Illness Date Seen by Provider: Mar 26, 2020 Time Seen by Provider: 15:40 Initial Comments 64-year-old female presenting with right knee pain and swelling since a fall in the bathroom last week. She had fallen on Friday and required help up by EMS. She had been having difficulty walking and bearing weight since then. She has been using a cane and having her help her at home. However throughout the week she felt like her leg was getting worse. Now today she felt like her pain was bad enough that she could not stay at home. Her was not strong enough her health enough to be able to help lift or move her around. [facility] but a [facility] is not available there until tomorrow at the earliest. EMS brought her here to the emergency department today for evaluation of her knee and the pain. She has tried taking Tylenol with Codeine and ibuprofen at home but has not taken anything for pain in the last 2 or 3 days. Allergies and Home Medications Allergies Coded Allergies: tramadol (Unverified Allergy, Unknown, 05/14/18) PER INC RN ESTEBAN Home Medications Acetaminophen 500 Mg Tablet, 500 MG PO Q6H PRN for PAIN-MILD (1-4), (Reported) Ascorbic Acid 500 Mg Capsule, 500 MG PO DAILY, (Reported) Calcium Carbonate 300 Mg Tab.chew, 300 MG PO TID PRN for STOMACH UPSET, (Reported) Calcium Carbonate 500 Mg Tablet, 500 MG PO DAILY, (Reported) Loratadine 10 Mg Tablet, 10 MG PO DAILY, (Reported) Multivitamin 1 Each Tablet, 1 EACH PO DAILY, (Reported) Patient Home Medication List Home Medication List Reviewed: Yes Review of Systems Constitutional: No chills, No fever EENTM: no symptoms reported Respiratory: no symptoms reported Cardiovascular: no symptoms reported Gastrointestinal: no symptoms reported Genitourinary: no symptoms reported Musculoskeletal: see HPI Skin: No change in color Psychiatric/Neurological: Weakness (general weakness and difficulty getting up and around due to right knee and leg pain since fall 03/20) Past Aytugin-Bvvdls-Gkrqhr Hx Past Med/Social Hx: Reviewed Nursing Past Med/Soc Hx Patient Social History 2nd Hand Smoke Exposure: No Recent Hopitalizations: No Past Medical History Surgeries: Yes ([place]) Gallbladder, Tubal Ligation Respiratory: No Currently Using CPAP: No Currently Using BIPAP: No Neurological: No Genitourinary: No Gastrointestinal: Yes Gastroesophageal Reflux Endocrine: No Cancer: Yes Ovarian Did You Recieve Any Treatments: Yes What Type of Treatment Did You: Chemotherapy Blood Disorders: No Adverse Reaction/Blood Tranf: No Physical Exam Vital Signs Vital Signs - First Documented 03/26/20 15:50 Temp 36.6 Pulse 78 Resp 14 B/P (MAP) 124/61 (82) Pulse Ox 100 O2 Delivery Room Air Capillary Refill : Height, Weight, BMI Height: 5'9.00" Weight: 27lbs. 0.0oz. [id number]; 39.00 BMI Method: General Appearance: mild distress, obese Neck: non-tender, supple Cardiovascular: normal peripheral pulses, regular rate, rhythm, other (2+pitting edema to BLE up above the knees, that pt reports is chronic and no change from usual for her) Respiratory: chest non-tender Legs: right leg soft tissue tenderness Knees: right knee pain, right knee soft tissue tenderness, right knee swelling, right knee other (Pain and swelling limits ROM of right knee) Neurologic/Tendon: normal sensation Neurologic/Psychiatric: sr. consultant II-XII nml as tested, alert, oriented x 3 Skin: warm/dry Progress/Results/Core Measures Results/Orders My Orders Orders - STEPHAN VELASQUEZ MD Knee 3 View Right (03/26/20 15:59) Femur 2 View Right (03/26/20 15:59) Fentanyl Injection (Sublimaze Injection (03/26/20 16:18) Hydrocodone/Apap 5/325 Tablet (Lortab 5 (03/26/20 19:50) Vital Signs/I&O 03/26/20 15:50 Temp 36.6 Pulse 78 Resp 14 B/P (MAP) 124/61 (82) Pulse Ox 100 O2 Delivery Room Air Progress Progress Note #1: Progress Note since she has increased swelling to the right knee and pain with movement as well as trying to stand Will obtain x-rays of the knee and femur to see if there was any fracture or bony abnormality from her fall last Friday. Try a dose of fentanyl 75 g IM for her pain. Progress Note #2: Progress Note no acute fracture or dislocation seen on femur or knee. She does have extensive degenerative changes. [facility] When [facility] was contacted they aren't aware of her possible admission but do not have a bed availability for her until tomorrow. When reviewed with pt that I did not have anything to qualify her for an acute medical admit for her right knee/leg pain and difficulty getting around she states that she can not go home due to pain and inability to walk and bear weight. Her is not able to lift her and she wants to know what else can be done. Will check to see if there are any other nearby facilities that might have a rehab level of bed for her knee pain and assistance getting up and around. Progress Note #3: Progress Note [facility] in [place], [place] was contacted and they had a bed and capability to take an emergency admit. Information about pt was sent to the facility and they accepted for emergency admit for PT/OT evaluation and treatment and to help with her knee and improving her ambulation and mobility. Pt was unable to get up and walk due to pain in right knee and was having limited weight bearing on right leg due to right knee pain. Pain medicine in the ED helped but did not resolve her pain enough to make it where she felt she could manage another night at home and then follow up with [facility] on Friday. They stated they would send a van with staff to pick her up shortly after 2099 Diagnostic Imaging Diagonstic Imaging: Xray Plain Films/CT/US/NM/MRI: knee Comments NAME: JOSEFINA ALBRECHT MED REC#: [id number] PT STATUS: REG ER : 1955 PHYSICIAN: STEPHAN VELASQUEZ MD ADMIT DATE: 03/26/20/ER FS Draft Date of Exam:03/26/20 KNEE 3 VIEW RIGHT INDICATION: Fell six days ago. Right knee pain. EXAMINATION: Three views of the right knee. FINDINGS: No fracture, dislocation or other acute bony abnormality. There are advanced tricompartmental degenerative changes present with narrowing and spurring present. Small effusion evident. IMPRESSION: There are advanced degenerative changes present with no acute bony abnormality seen. Dictated on workstation # [id number] Dict: 03/26/20 1633 Trans: 03/26/20 1638 [facility] [id number] Interpreted by: NERY MERCHANT MD Electronically signed by: Geovanna Imaging: Xray Plain Films/CT/US/NM/MRI: femur Comments [facility] [place] [place] NAME: JOSEFINA ALBRECHT [facility] REC#: [id number] PT STATUS: REG ER : 1955 PHYSICIAN: STEPHAN VELASQUEZ MD ADMIT DATE: 03/26/20/ER FS Draft Date of Exam:03/26/20 FEMUR 2 VIEW RIGHT INDICATION: Fell six days ago. Pain and swelling of the right lower leg. EXAMINATION: AP and lateral views of the right femur were obtained. FINDINGS: No fracture, dislocation or other acute abnormality. There is mild narrowing of the hip joint with no significant spurring. There are advanced tricompartmental degenerative changes of the knee joint. IMPRESSION: No acute abnormality is seen. Dictated on workstation # [id number] Dict: 03/26/20 1631 Trans: 03/26/20 1637 [facility] [id number] Interpreted by: NERY MERCHANT MD Electronically signed by: Departure Impression Primary Impression: Right knee sprain Qualified Codes: S83.91XA - Sprain of unspecified site of right knee, initial encounter Additional Impressions: Fall at home Qualified Codes: W19.XXXA - Unspecified fall, initial encounter; Y92.009 - Unspecified place in unspecified non-institutional (private) residence as the place of occurrence of the external cause Right leg pain Impaired ambulation Inability to ambulate due to right knee Disposition: HOME, SELF-CARE Condition: Stable Departure-Patient Inst. Decision time for Depature: 19:49 Referrals: KEZIA BOND MD (PCP/Family) Primary Care Physician Patient Instructions: Knee Sprain (DC), Preventing Falls Add. Discharge Instructions: Continue your medicines and regular care from [facility]zman and the [facility]. Discharge to [facility] in [place], [place] for PT/OT and rehab for her right knee pain and trouble walking. All discharge instructions reviewed with patient and/or family. Voiced understanding. STEPHAN VELASQUEZ MD Mar 26, 2020 15:59
[2020-03-26] MEDS ORDERED: fentaNYL INJECTION 100 MCG/2 ML AMP IM STA (16:18)
--- NOTE | 2020-03-26 16:18 | NUR ---
Call received from Kadie at [facility]. She states that the earliest the patient could be accepted to [facility] is tomorrow.
--- NOTE | 2020-03-26 16:37 | Diagnostic Imaging Report ---
INDICATION: Fell six days ago. Pain and swelling of the right lower leg. EXAMINATION: AP and lateral views of the right femur were obtained. FINDINGS: No fracture, dislocation or other acute abnormality. There is mild narrowing of the hip joint with no significant spurring. There are advanced tricompartmental degenerative changes of the knee joint. IMPRESSION: No acute abnormality is seen. Dictated by: Dictated on workstation # [id number]
--- NOTE | 2020-03-26 16:38 | Diagnostic Imaging Report ---
INDICATION: Fell six days ago. Right knee pain. EXAMINATION: Three views of the right knee. FINDINGS: No fracture, dislocation or other acute bony abnormality. There are advanced tricompartmental degenerative changes present with narrowing and spurring present. Small effusion evident. IMPRESSION: There are advanced degenerative changes present with no acute bony abnormality seen. Dictated by: Dictated on workstation # [id number]
[2020-03-26] MEDS ORDERED: HYDR25TA4 (17:53)
[2020-03-26] MEDS ORDERED: METO5TAB6 (17:53)
[2020-03-26] MEDS ORDERED: POTA20TA15 (17:53)
[2020-03-26] MEDS ORDERED: HYDROcodone/APAP 5 MG/325 MG (LORTAB) TAB PO STA (19:50)
[2020-03-26 21:55] VITALS: BP 134/69
== END 2020-03-26 21:55 | disposition home or self-care (01) ==
LOC: EDUNIT# 15:40 → ER FS 15:41
DX: S83.91XA Sprain of unspecified site of right knee, initial encounter (principal); R26.9 Unspecified abnormalities of gait and mobility; R29.898 Other symptoms and signs involving the musculoskeletal system; E66.9 Obesity, unspecified; Z68.39 Body mass index [BMI] 39.0-39.9, adult; Z85.43 Personal history of malignant neoplasm of ovary; Z88.5 Allergy status to narcotic agent; W18.2XXA Fall in (into) shower or empty bathtub, initial encounter
CPT/HCPCS: 73552; 73562

== ENCOUNTER → 2020-04-12 | Outpatient (CLI) | payer BC ==
[~2020-04-12] MED LIST changes: +HYDR25TA4; +METO5TAB6; +POTA20TA15
--- NOTE | 2020-04-12 15:26 | Diagnostic Imaging Report ---
PROCEDURE: CT right lower extremity without contrast. TECHNIQUE: Axially acquired CT was obtained through the right lower extremity without intravenous contrast. Coronal and sagittal reformations were also performed. Auto Exposure Controls were utilized during the CT exam to meet ALARA standards for radiation dose reduction. INDICATION: Acute pain in the right knee. Unable to bear weight. COMPARISON: Radiographs from 03/26/2020. FINDINGS: No acute fracture is seen in the right knee. There is severe degenerative change in all three compartments with complete joint space loss and marginal osteophytes. There also appear to be erosive changes at the cortex of the articular surfaces of the patella, trochlea, and the medial and lateral femoral condyles. There is a large right knee joint effusion. There is moderate generalized muscular atrophy. There is severe subcutaneous edema and skin thickening about the right knee. IMPRESSION: 1. Advanced tricompartmental degenerative changes in the right knee. There are superimposed erosive changes at the cortex, could represent an underlying inflammatory arthropathy. 2. No acute fracture is seen in the right knee. 3. Large right knee joint effusion. 4. Marked subcutaneous edema and skin thickening about the right knee. Dictated by: Dictated on workstation # [id number]
== END ==
LOC: RAD 14:11
PROVIDERS: ATTEND Nurse Practitioner Family
DX: M17.11 Unilateral primary osteoarthritis, right knee (principal)
CPT/HCPCS: 73700